=== PATIENT | female | born 1950 | race Caucasian/White ===

== ENCOUNTER 2017-04-05 09:20 | Emergency (ER) | payer MEDICARE ==
[2017-04-05] MEDS ORDERED: Aspirin Low Dose CHEW TAB* 81 MG PO ONE (10:01)
[2017-04-05 10:14] LABS: Hematocrit 43 % (35-47); Hemoglobin 14.5 g/dl (12.0-16.0); Mean Corpuscular HGB Conc 34 g/dl (31-36); Mean Corpuscular Hemoglobin 30 pg (27-31); Mean Corpuscular Volume 90 fL (80-97); Mean Platelet Volume 9 um3 (7.4-10.4); Red Blood Count 4.82 10^6/ul (4.0-5.4); Red Cell Distribution Width 14 % (10.5-15); White Blood Count 8.7 10^3/ul (3.5-10.8)
[2017-04-05] MEDS ORDERED: NS 0.9% 1000 ML* 1,000 ML IV SCH (10:15)
[2017-04-05 10:29] LABS: Troponin I 0.01 ng/mL (<0.04)
[2017-04-05 10:35] LABS: Albumin 4.5 g/dL (3.2-5.2); BUN/Creatinine Ratio 18.6 (8-20); C Reactive Protein 8.45 mg/L (< 5.00); Calcium 9.2 mg/dL (8.6-10.3); EGFR African American 69.1 (>60); EGFR Non-African American 53.7 (>60); Globulin 3.1 g/dL (2-4); Magnesium 2.3 mg/dL (1.9-2.7); Potassium 3.6 mmol/L (3.5-5.0); TSH (Thyroid Stimulating Horm) 2.68 mcIU/mL (0.34-5.60); Total Bilirubin 0.7 mg/dL (0.2-1.0); Total Protein 7.6 g/dL (6.4-8.9)
--- NOTE | 2017-04-05 10:42 | RAD ---
INDICATION: Left upper chest pain. COMPARISON: Comparison is made with a prior chest x-ray study from June 30, 2010. TECHNIQUE: A portable view of the chest was obtained. FINDINGS: Cardiac and mediastinal contours appear to be within normal limits. The lungs are clear. No pleural effusion or pneumothorax is seen. IMPRESSION: NO EVIDENCE FOR ACUTE DISEASE.
[2017-04-05 11:40] VITALS: BP 142/58
--- NOTE | 2017-04-05 14:47 | ED ---
George Donaldson Salem, scribed for Burt Palomino MD on 04/05/17 at 0951 . HPI Chest Pain - HPI Summary HPI Summary: Patient is a 67 y/o F who presents to the ED with sharp shoulder pain since 2 days ago. She states that she had trouble sleeping 2 nights ago, as well as nausea, SOB, and sharp left shoulder pain. She took 3 NTG that night and tried to return to sleep and woke up with mild nausea, but no pain yesterday morning. However, pain returned during the day yesterday and she woke up with left shoulder pain this morning. She states that pain was sharp, but then became dull and is not present during examination. Pt was diaphoretic yesterday and today. She denies neck pain, but reports general numbness and edema unchanged from baseline. She states shoulder pain is not changed with arm movement. She denies taking any medication today. PMHx significant for HTN, HLD, and 2 MIs. - History of Current Complaint Chief Complaint: EDChestPainROMI Time Seen by Provider: 04/05/17 09:40 Hx Obtained From: Patient Onset/Duration: Started Days Ago, Atraumatic, Resolved Timing: Intermittent Initial Severity: Moderate Current Severity: Moderate Pain Intensity: 5 Pain Scale Used: 0-10 Numeric Chest Pain Location: Diffuse - Left shoulder. Chest Pain Radiates: No Character: Dull/Aching, Sharp/Stabbing Aggravating Factor(s): Nothing Alleviating Factor(s): Nothing Associated Signs and Symptoms: Positive: Chest Pain, Numbness, Shortness of Breath, Nausea, Edema - Allergy/Home Medications Allergies/Adverse Reactions: Allergies Allergy/AdvReac Type Severity Reaction Status Date / Time Eggs or Egg-derived Products Allergy Unknown Verified 07/27/14 14:14 Reaction Details Penicillins Allergy Unknown Verified 02/05/15 15:10 Reaction Details Statins Allergy Unknown Verified 07/27/14 14:14 Reaction Details statin Allergy Unknown Uncoded 07/27/14 14:14 Reaction Details Home Medications: Home Medications Aspirin EC Low Dose* [Ecotrin EC Low Dose 81 MG*] 81 mg PO BID 04/05/17 [ History Confirmed 04/05/17] LoraTADine TAB(NF) [Claritin 10 MG TAB(NF)] 10 mg PO DAILY PRN 04/05/17 [ History Confirmed 04/05/17] Meclizine TAB* [Antivert 12.5 TAB*] 25 mg PO TID PRN 04/05/17 [History Confirmed 04/05/17] Multivitamins/Minerals TAB* [Theragran/minerals TAB*] 1 tab PO DAILY 04/05/17 [ History Confirmed 04/05/17] Ranitidine TAB (NF) [Zantac TAB (NF)] 150 mg PO BID 04/05/17 [History Confirmed 04/05/17] Telmisartan (NF) [Micardis (NF)] 80 mg PO DAILY 04/05/17 [History Confirmed ] Vitamin B Complex CAP* [B Complex CAP*] 1 cap PO DAILY 04/05/17 [History Confirmed 04/05/17] amLODIPine TAB* [Norvasc 5 mg TAB*] 5 mg PO DAILY 04/05/17 [History Confirmed ] PMH/Surg Hx/FS Hx/Imm Hx Endocrine/Hematology History: Denies: Hx Diabetes Cardiovascular History: Reports: Hx Angina, Hx Coronary Artery Disease, Hx Hypertension, Hx Myocardial Infarction Denies: Hx Hypercholesterolemia, Hx Pacemaker/ICD, Hx Valvular Heart Disease Respiratory History: Denies: Hx Asthma, Hx Chronic Obstructive Pulmonary Disease (COPD) Sensory History: Denies: Hx Hearing Aid Psychiatric History: Denies: Hx Panic Disorder - Surgical History Surgery Procedure, Year, and Place: HYSTERECTOMY Infectious Disease History: No Infectious Disease History: Denies: Traveled Outside the [place] in Last 30 Days - Family History Known Family History: Positive: Cardiac Disease, Diabetes - Social History Alcohol Use: None Hx Substance Use: No Substance Use Type: Reports: None Hx Tobacco Use: No Smoking Status (MU): Never Smoked Tobacco Review of Systems Positive: Skin Diaphoresis, Other - Trouble sleeping. ENT: Other - No neck pain. Positive: Chest Pain - Sharp left shoulder pain. Positive: Shortness Of Breath Positive: Nausea Positive: Edema Positive: Numbness - General. All Other Systems Reviewed And Are Negative: Yes Physical Exam Triage Information Reviewed: Yes Vital Signs On Initial Exam: Initial Vitals Temp Pulse Resp BP Pulse Ox 97.7 F 57 20 165/76 99 04/05/17 09:23 04/05/17 09:23 04/05/17 09:23 04/05/17 09:23 04/05/17 09:23 Vital Signs Reviewed: Yes Appearance: Positive: Well-Appearing, No Pain Distress Skin: Positive: Warm, Skin Color Reflects Adequate Perfusion, Dry Head/Face: Positive: Normal Head/Face Inspection Eyes: Positive: EOMI, MISTY Neck: Positive: Supple, Nontender Respiratory/Lung Sounds: Positive: Clear to Auscultation, Breath Sounds Present Cardiovascular: Positive: RRR Abdomen Description: Positive: Nontender, Soft Bowel Sounds: Positive: Present Musculoskeletal: Positive: Normal, Strength/ROM Intact, Other - Left shoulder: nontender and full ROM. Neurological: Positive: Normal, Sensory/Motor Intact, Alert, Oriented to Person Place, Time Psychiatric: Positive: Affect/Mood Appropriate Diagnostics - Vital Signs Vital Signs Temp Pulse Resp BP Pulse Ox 04/05/17 09:26 97.7 F 57 20 165/76 97 04/05/17 09:23 97.7 F 57 20 165/76 99 - Laboratory Lab Results: Lab Results 04/05/17 04/05/17 04/05/17 Range/Units 09:40 09:40 09:40 WBC 8.7 (3.5-10.8) 10^3/ul RBC 4.82 (4.0-5.4) 10^6/ul Hgb 14.5 (12.0-16.0) g/dl Hct 43 (35-47) % MCV 90 (80-97) fL MCH 30 (27-31) pg MCHC 34 (31-36) g/dl RDW 14 (10.5-15) % Plt Count 250 (150-450) 10^3/ul MPV 9 (7.4-10.4) um3 Neut % (Auto) 61.1 (38-83) % Lymph % (Auto) 29.1 (25-47) % Kent % (Auto) 7.2 (1-9) % Eos % (Auto) 2.0 (0-6) % Baso % (Auto) 0.6 (0-2) % Absolute Neuts (auto) 5.3 (1.5-7.7) 10^3/ul Absolute Lymphs (auto) 2.5 (1.0-4.8) 10^3/ul Absolute Monos (auto) 0.6 (0-0.8) 10^3/ul Absolute Eos (auto) 0.2 (0-0.6) 10^3/ul Absolute Basos (auto) 0.1 (0-0.2) 10^3/ul Absolute Nucleated RBC 0.01 10^3/ul Nucleated RBC % 0.1 INR (Anticoag Therapy) 0.95 (0.89-1.11) APTT 28.0 (26.0-36.3) seconds D-Dimer, Quantitative < 200 (Less Than 230) ng/mL Sodium 139 (133-145) mmol/L Potassium 3.6 (3.5-5.0) mmol/L Chloride 103 (101-111) mmol/L Carbon Dioxide 28 (22-32) mmol/L Anion Gap 8 (2-11) mmol/L BUN 19 (6-24) mg/dL Creatinine 1.02 H (0.51-0.95) mg/dL Est GFR ( Amer) 69.1 (>60) Est GFR (Non-Af Amer) 53.7 (>60) BUN/Creatinine Ratio 18.6 (8-20) Glucose 117 H (70-100) mg/dL Lactic Acid (0.5-2.0) mmol/L Calcium 9.2 (8.6-10.3) mg/dL Magnesium 2.3 (1.9-2.7) mg/dL Total Bilirubin 0.70 (0.2-1.0) mg/dL AST 18 (13-39) U/L ALT 20 (7-52) U/L Alkaline Phosphatase 53 (34-104) U/L Total Creatine Kinase 42 (10-223) U/L CK-MB (CK-2) 1.0 (0.6-6.3) ng/mL Troponin I 0.01 (<0.04) ng/mL C-Reactive Protein 8.45 H (< 5.00) mg/L B-Natriuretic Peptide ( - 100) pg/mL Total Protein 7.6 (6.4-8.9) g/dL Albumin 4.5 (3.2-5.2) g/dL Globulin 3.1 (2-4) g/dL Albumin/Globulin Ratio 1.5 (1-3) Lipase 14 (11.0-82.0) U/L TSH 2.68 (0.34-5.60) mcIU/mL 04/05/17 04/05/17 Range/Units 09:40 09:40 WBC (3.5-10.8) 10^3/ul RBC (4.0-5.4) 10^6/ul Hgb (12.0-16.0) g/dl Hct (35-47) % MCV (80-97) fL MCH (27-31) pg MCHC (31-36) g/dl RDW (10.5-15) % Plt Count (150-450) 10^3/ul MPV (7.4-10.4) um3 Neut % (Auto) (38-83) % Lymph % (Auto) (25-47) % Kent % (Auto) (1-9) % Eos % (Auto) (0-6) % Baso % (Auto) (0-2) % Absolute Neuts (auto) (1.5-7.7) 10^3/ul Absolute Lymphs (auto) (1.0-4.8) 10^3/ul Absolute Monos (auto) (0-0.8) 10^3/ul Absolute Eos (auto) (0-0.6) 10^3/ul Absolute Basos (auto) (0-0.2) 10^3/ul Absolute Nucleated RBC 10^3/ul Nucleated RBC % INR (Anticoag Therapy) (0.89-1.11) APTT (26.0-36.3) seconds D-Dimer, Quantitative (Less Than 230) ng/mL Sodium (133-145) mmol/L Potassium (3.5-5.0) mmol/L Chloride (101-111) mmol/L Carbon Dioxide (22-32) mmol/L Anion Gap (2-11) mmol/L BUN (6-24) mg/dL Creatinine (0.51-0.95) mg/dL Est GFR ( Amer) (>60) Est GFR (Non-Af Amer) (>60) BUN/Creatinine Ratio (8-20) Glucose (70-100) mg/dL Lactic Acid 1.3 (0.5-2.0) mmol/L Calcium (8.6-10.3) mg/dL Magnesium (1.9-2.7) mg/dL Total Bilirubin (0.2-1.0) mg/dL AST (13-39) U/L ALT (7-52) U/L Alkaline Phosphatase (34-104) U/L Total Creatine Kinase (10-223) U/L CK-MB (CK-2) (0.6-6.3) ng/mL Troponin I (<0.04) ng/mL C-Reactive Protein (< 5.00) mg/L B-Natriuretic Peptide 48 ( - 100) pg/mL Total Protein (6.4-8.9) g/dL Albumin (3.2-5.2) g/dL Globulin (2-4) g/dL Albumin/Globulin Ratio (1-3) Lipase (11.0-82.0) U/L TSH (0.34-5.60) mcIU/mL Result Diagrams: 04/05/17 09:40 04/05/17 09:40 Diagnostic Studies Comment: Trop: 0.01 Lab Statement: Any lab studies that have been ordered have been reviewed, and results considered in the medical decision making process. - Radiology CXR Radiology Interpretation Completed By: Radiologist - IMPRESSION: NO EVIDENCE FOR ACUTE DISEASE. - EKG 0935 EKG Interpretation: Sinus bradycardia @ [address] No ectopy. Re-Evaluation - Re-Evaluation First Eval Re-Evaluation Time: 11:24 Comment: Discussed recommendation for admission and consult with hospitalist. Chest Pain Course/Dx - Course Course Of Treatment: Recommended admission, but pt declined. She states that she feels better and that she would like to go home. However, she will follow up with her obiee report developer. DISCUSSED RESULTS WITH PATIENT/ AND PLANNED ON ADMITTING PATIENT. 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 - Diagnoses Provider Diagnoses: Chest pain - Provider Notifications Discussed Care Of Patient With: Becyk Jordan Time Discussed With Above Provider: 11:08 Instructed by Provider To: Other - Consult admission. Discharge - Discharge Plan Condition: Stable Disposition: HOME Patient Education Materials: Chest Pain (ED), Acute Nausea and Vomiting (ED) Referrals: Mulugeta Perez MD [Medical Doctor] - Zoe Dey MD [Primary Care Provider] - Additional Instructions: FOLLOW UP WITH YOUR PRIMARY CARE DOCTOR AND YOUR CORN DETASSELER MACHINE OPERATOR. RETURN TO THE EMERGENCY DEPARTMENT FOR ANY WORSENING OF YOUR CONDITION; CHEST PAIN, SHORTNESS OF BREATH, YOU FEEL ILL OR QUESTIONS OR CONCERNS. The documentation as recorded by the George funez Salem accurately reflects the service I personally performed and the decisions made by me, Burt Palomino MD.
== END 2017-04-05 11:40 | disposition home or self-care (01) ==
LOC: ED 09:20
DX: R07.9 Chest pain, unspecified (principal); M25.512 Pain in left shoulder; R06.02 Shortness of breath; R11.0 Nausea
CPT/HCPCS: 36415; 71010; 80053; 82550; 82553; 83605; 83690; 83735; 83880; 84443; 84484; 85025; 85379; 85610; 85730; 86140; 93005; 99283; A9270-GY

== ENCOUNTER 2017-09-25 08:34 | Observation (INO) | payer MEDICARE ==
[~2017-09-25 08:34] MED LIST: Atracurium* 10 MG/ML 10 ML VIAL ONE; Buffered Lidocaine 0.9% SYRIN* 5 ML/SYR SYRINGE INTRADERM ONE; DiMENhydriNATE IV* 50 MG/ML VIAL IV PUSH PRN; Famotidine IV* 10 MG/ML 2 ML (20 mg) IV ONE; KETAMINE HCL* 50 MG/ML 10 ML VIAL ONE; Midazolam* 1 MG/ML 10 ML VIAL (10 MG) ONE; Morphine INJ* 2 MG/ML 1 ML CARPUJECT IV PRN; PROCHLORPERAZINE INJ 5 MG/ML 2 ML VIAL IV PRN; fentaNYL* 50 MCG/ML 2 ML VIAL (100 MCG VIAL) ONE; oxyCODONE/Acetamin 5/325 MG* TAB PO PRN
[2017-09-25] MEDS ORDERED: Famotidine IV* 10 MG/ML 2 ML (20 mg) ONE (08:44)
[2017-09-25] MEDS ORDERED: Buffered Lidocaine 0.9% SYRIN* 5 ML/SYR SYRINGE ONE (08:44)
[2017-09-25] MEDS ORDERED: Thrombin 5,000 UNITS* 1 APPLIC KIT - topical use - TOPICAL ONE (09:47)
[2017-09-25] MEDS ORDERED: Lidocaine 1% MPF wEPI 200,000* 30 ML SDV ONE (09:47)
[2017-09-25] MEDS ORDERED: Bacitracin IV* 50,000 UNITS INJ ONE (09:48)
[2017-09-25] MEDS ORDERED: ceFAZolin 2 GM PREMIX (*) 2 GM/50 ML BAG IVPB ONE (10:14)
[2017-09-25] MEDS ORDERED: Lidocaine 2% PF * 5 ML VIAL ONE (11:48)
[2017-09-25] MEDS ORDERED: Dexamethasone IV* 4 MG/ML 1 ML (4 MG) ONE (11:48)
[2017-09-25] MEDS ORDERED: Ondansetron INJ* 2 MG/ML VIAL ONE (11:48)
[2017-09-25] MEDS ORDERED: Propofol* 10 MG/ML 20 ML BTL IV PUSH ONE (11:48)
[2017-09-25] MEDS ORDERED: Metoprolol Tartrate IV* 1 MG/ML 5 ML VIAL ONE (11:49)
[2017-09-25] MEDS ORDERED: EPHEDrine (Pressors)* 50 MG/ML VIAL ONE (11:50)
[2017-09-25] MEDS ORDERED: Naloxone* 0.4 MG/ML 10 ML VIAL ONE (11:59)
[2017-09-25] MEDS ORDERED: Ondansetron INJ* 2 MG/ML VIAL IV PRN (12:01)
[2017-09-25] MEDS ORDERED: Magnesium Hydroxide LIQ* 30 ML UDC PO PRN (12:01)
[2017-09-25] MEDS ORDERED: Acetaminophen TAB* 325 MG PO PRN (12:01)
[2017-09-25] MEDS ORDERED: fentaNYL* 50 MCG/ML 2 ML VIAL (100 MCG VIAL) ONE (12:22)
[2017-09-25] MEDS ORDERED: oxyCODONE/Acetamin 5/325 MG* TAB ONE (12:22)
[2017-09-25] MEDS: fentaNYL* 50 MCG/ML 2 ML VIAL (100 MCG VIAL) IV PRN ×2 (12:25→13:19)
--- NOTE | 2017-09-25 13:28 | RAD ---
INDICATION: Back surgery COMPARISON: None TECHNIQUE: Single crosstable lateral view of the lumbar spine is submitted FINDINGS: There are retractors and a curved hemostat at the L4-L5 level. Images were obtained for operative control purposes
[2017-09-25] MEDS ORDERED: Atenolol TAB* 50 MG PO SCH (18:00)
[2017-09-25] MEDS ORDERED: amLODIPine TAB* 5 MG PO SCH (18:00)
[2017-09-25] MEDS: HYDROcodone/ACETAMIN 5-325 MG* 1 TAB PO PRN ×2 (18:57→23:59)
--- NOTE | 2017-09-25 20:16 | CONS ---
CONSULTATION REPORT: DATE OF CONSULT: 09/25/17 PROVIDER: Pat Garcia NP PRIMARY CARE PROVIDER: Dr. Zoe Dey. ATTENDING PHYSICIAN: Dr. Curry. CONSULTING PHYSICIAN: Dr. Misael Lewis * (dictation is provided by Pat Garcia NP). REASON FOR CONSULT: Co-medical management of the patient's chronic medical conditions. HISTORY OF PRESENT ILLNESS: Ms. Mace is a 67-year-old female that presented for a right decompression lumbar laminectomy at L4-L5 with Dr. Curry today. She has a medical history significant for hypertension, coronary artery disease. She has a history of myocardial infarction, hyperlipidemia, and chronic ischemic heart disease. Postoperatively, the patient is doing well. She has no complaints other than mild lower back pain at this time. The patient states leading up to the surgery, she has been in a good state of health except for her chronic lower back pain that radiates down her right leg. She states that the pain becomes worse with prolonged standing and walking or activity. The pain radiates down the right posterior thigh to the foot. The patient denies fevers, chills, or shortness of breath. Denies edema. She denies any nausea, vomiting, or diarrhea. Denies any abdominal pain. PAST MEDICAL HISTORY: 1. Hypertension. 2. Coronary artery disease. 3. History of myocardial infarction. 4. Hyperlipidemia. 5. Chronic ischemic heart disease. PAST SURGICAL HISTORY: Colonoscopy. MEDICATIONS: 1. Amlodipine 5 mg p.o. daily. 2. Zantac 150 mg p.o. daily. 3. Niacin 500 mg p.o. daily. 4. Multivitamin 1 p.o. daily. 5. Meclizine 25 mg p.o. t.i.d. p.r.n. dizziness. 6. Coenzyme Q10 100 mg p.o. daily. 7. Atenolol 50 mg p.o. q.p.m. 8. Aspirin 81 mg p.o. q. day. 9. Ascorbic acid 1000 mg p.o. daily. ALLERGIES: She has an allergy to CHLORHEXIDINE, EGGS or EGG-DERIVATIVE PRODUCTS , STATINS, TELMISARTAN, and PENICILLINS. She reports PENICILLIN allergy with a local reaction of redness at the injection site. FAMILY HISTORY: Father has a history of coronary artery disease and an [place]. SOCIAL HISTORY: She denies smoking or drug use. She is and lives with her . She does report that she has a drink of liquor or wine approximately 3 times a week. Surrogate decision maker in the case if she is unable to make her own medical decisions is her , Morgan Mace, and his phone number is . REVIEW OF SYSTEMS: General: She denies fever, chills, or unintended weight loss. Cardiac: She has got no chest pain or edema. Respiratory: She denies shortness of breath, cough, or congestion. GI: She denies nausea, vomiting, or diarrhea. She denies any abdominal pain. : No gross hematuria or dysuria. Neuro: No focal weakness or sensory loss. Eyes: No visual complaints. ENT: No dysphagia. Musculoskeletal: No myalgias. Skin: No rashes or lesions. Psych: She denies any depression or anxiety. PHYSICAL EXAM: Vital Signs: Blood pressure 158/62, heart rate is 52, respirations are 12, O2 sat is 100% on 2 L nasal cannula, temperature is 96.8. General: Ms. Mace is a 67-year-old female. She is lying in the bed. She is in no acute distress. She denies any complaints other than mild back pain at this time. Neuro: She is alert and oriented x3. She moves all of her extremities. There is no facial asymmetry or focal weakness noted. Extraocular eye movements are intact. Heart: S1, S2 normal. She is bradycardic. There are no murmurs, rubs, or gallops. Lungs are clear to auscultation bilaterally. There is no accessory muscle use. Abdomen is soft and nontender. Bowel sounds are positive x4. Extremities: There is no cyanosis or edema. Skin is intact. DIAGNOSTIC STUDIES/LAB DATA: Preoperatively, this lab work is from 09/20/17: WBC 8.5, RBC 4.42, hemoglobin is 13.3, hematocrit 40, platelet count was 238. INR is 0.95, that was from 04/05/17. From 09/20/17: Sodium 140, potassium was 3.6, chloride was 102, carbon dioxide was 31, anion gap was 7, BUN was 12, creatinine 0.87, glucose was 97, calcium was 9.3. TSH was 2.86. EKG shows sinus elva at 51, first-degree AV block. Chest x-ray from 09/20/17, shows Radiology impression was no active cardiopulmonary disease. IMPRESSION AND PLAN: Ms. Mace is a 67-year-old female with significant past medical history for coronary artery disease, hypertension, hyperlipidemia, who presented to the hospital today for a planned L4-L5 right decompression lumbar laminectomy. In the immediate postoperative period, she has no complaints. We were asked to consult regarding management of her co-medical chronic medical conditions. Our recommendations are as follows: 1. Status post right L4-L5 laminectomy. management per Neurosurgery. 2. Hypertension. We will hold her amlodipine and restart that tomorrow morning. 3. Hyperlipidemia. We will continue her niacin. 4. History of myocardial infarction. We will continue her on her atenolol 50 mg. 5. FEN. I would recommend a heart-healthy diet. 6. Code status. She is a full code. 7. DVT prophylaxis. As per Neurosurgery. 8. Disposition. As per Neurosurgery. TIME SPENT: Approximately 45 minutes was spent on this consultation with this patient, more than half the time was spent at the bedside reviewing the events leading to the hospitalization and performing physical exam. The case was reviewed with my attending, Dr. Misael Lewis, and he is in agreement with my plan of care. PAT GARCIA, KARINA [id number]/[facility] #: [id number] SUKI
[2017-09-26] MEDS: HYDROcodone/ACETAMIN 5-325 MG* 1 TAB PO PRN ×2 (03:58→08:02)
[2017-09-26 07:42] VITALS: BP 135/56
--- NOTE | 2017-09-26 07:56 | PN ---
Progress Note - Progress Note Date of Service: 09/26/17 SOAP: Subjective: []POD # 1 C/O incisional pain Has ambulated Voiding well Objective: []Neuro intact Dressing dry Assessment: []Satis post op course Plan: []D/C today D/C Instructions given
[2017-09-26] MEDS ORDERED: Aspirin EC Low Dose* 81 MG TAB.EC PO SCH (09:00)
[2017-09-26] MEDS ORDERED: Coenzyme Q10 (NF) ** ENTER STREGNTH IN LABEL DIRECTIONS PO SCH (09:00)
[2017-09-26] MEDS ORDERED: amLODIPine TAB* 5 MG PO SCH (18:00)
--- NOTE | 2017-09-27 21:12 | OP ---
OPERATIVE REPORT: DATE OF OPERATION: 09/25/17 DATE OF : 46 PRIMARY SURGEON: Eduar Curry MD INSPECTOR FLOOR: JEANNIE Santana ANESTHESIA: General. PRE-OP DIAGNOSES: Lumbar spinal stenosis at L4-L5, herniated nucleus pulposus at L4-5 on the right. POST-OP DIAGNOSES: Lumbar spinal stenosis at L4-L5, herniated nucleus pulposus at L4-5 on the right. OPERATIVE PROCEDURE: Decompressive lumbar laminectomy at L4-5 with excision of herniated nucleus pul posus L4-5 on the right with microdissection. DESCRIPTION OF PROCEDURE: After satisfactory general anesthesia was obtained, the patient was placed on the operating room table in a prone position with the chest supported on the Humble frame and the back slightly flexed. The lumbar region was then clipped, prepped and draped in a sterile manner fo r lumbar laminectomy and a skin incision outlined from L4 to L5. This incision was infiltrated with 1% Xylocaine with epinephrine, after which it was turned down sharply to the level of the lumbar fasc ia. The fascia was divided on spinous processes of L4 and L5 and the paraspinal musculature stripped away from these posterior elements utilizing the periosteal elevator and monopolar cautery. An intr aoperative x-ray was obtained verifying proper interspace localization, after which a decompression w as carried out by removing the spinous process of L4 and the superior aspect of the spinous process o f L5 with a Leksell rongeur. A Midas Efrain drill was then used to thin out the reinforcement at the ba se of the spinous process of L4 and the inferior aspect of the lamina as well as the medial aspect of the thickened facet complex. A decompression was then carried out and taken superiorly into the att achment of the ligamentum flavum was taken down. Ligamentum flavum was then removed with the Kerriso n. A generous decompression was initially carried out on both sides utilizing the Kerrison's. This was carried down to both L5 nerve roots and noted to be free in their course. Attention was then dir ected to the L4-L5 disk on the right side where a preoperative imaging has suggested a disk herniatio n. Projecting beneath the posterior longitudinal ligament was heaped up somewhat from disk herniatio n. An opening was made in the posterior longitudinal ligament and the disk space decompressed utiliz ing curettes and pituitary rongeurs. It was felt that a satisfactory decompression had been achieved. After assuring adequate hemostasis, the wound was thoroughly irrigated, after which a piece of Gelf oam was placed over the laminectomy defect. The fascia was then reapproximated with 0 Vicryl suture . The subcutaneous tissue was closed with 3-0 Vicryl suture and the skin closed with skin clips. Th e estimated blood loss was less than 50 cc and the final sponge, padding, and needle counts were erica ect. The patient was taken to the recovery room, extubated, and in stable condition. [id number]/[facility] #: [id number]
--- NOTE | 2017-09-28 00:34 | DS ---
DISCHARGE SUMMARY: DATE OF ADMISSION: 09/25/17 DATE OF DISCHARGE: 09/26/17 ATTENDING PHYSICIAN: Dr. Eduar Curry* (dictated by JEANNIE Benitez). DISCHARGE DIAGNOSES: 1. Lumbar stenosis, L4-5. 2. Herniated nucleus pulposus, L4-5 to the right. 3. Hypertension. 4. Coronary artery disease. 5. History of myocardial infarction. PROCEDURES: Decompressive lumbar laminectomy, L4-5 and lumbar diskectomy at L4- 5 on the right. HOSPITAL COURSE: This 67-year-old female was seen in the office with right- sided lumbar radiculopathy consistent with MRI findings of stenosis and right- sided herniated disk at L4-5. She failed to improve after several runs of conservative treatment and medication and elective surgical treatment was discussed with the patient. On the day of admission, she was taken to surgery where under general anesthesia a decompressive lumbar laminectomy at L4-5 and a lumbar diskectomy at L4- 5 on the right operation was carried out. Postoperatively, Hospitalist was consulted for medical co-management of cardiac conditions. Postoperatively, she was feeling well. She was ambulating independently. She was eating, drinking, and voiding without difficulty. Pain was well controlled with oral pain medication. On the first postoperative day, she was discharged to home to the care of her . DISCHARGE INSTRUCTIONS: Activity level and wound care were discussed with the patient and information on this was provided. DISCHARGE MEDICATIONS: None. FOLLOWUP: The patient will be seen in the office on 10/05/17 for followup and staple removal. JEANNIE BENITEZ [id number]/[facility] #: [id number] MTDD
== END 2017-09-26 10:00 | disposition home or self-care (01) ==
LOC: OR 08:34 → SSU 14:00
PROVIDERS: ADMIT Neurological Surgery; ATTEND Internal Medicine
DX: M48.061 Spinal stenosis, lumbar region without neurogenic claudication (principal); M51.26 Other intervertebral disc displacement, lumbar region; I10 Essential (primary) hypertension; I25.10 Atherosclerotic heart disease of native coronary artery without angina pectoris; I25.2 Old myocardial infarction; Z79.82 Long term (current) use of aspirin; Z79.899 Other long term (current) drug therapy; Z91.012 Allergy to eggs; Z88.0 Allergy status to penicillin; Z91.09 Other allergy status, other than to drugs and biological substances
CPT/HCPCS: 72100; 96374; 96375; A9270-GY; G0378; J0690; J1100; J2001; J2250; J2310; J2405; J2704; J3010; J3490

== ENCOUNTER 2017-10-03 00:14 | Emergency (ER) | payer MEDICARE ==
[2017-10-03] MEDS ORDERED: Dexamethasone IV* 4 MG/ML 1 ML (4 MG) IV SLOW PU ONE (01:46)
[2017-10-03] MEDS ORDERED: diPHENhydraMINE IV* 50 MG/ML 1 ml VIAL (BENADRYL) IV ONE (01:46)
[2017-10-03] MEDS ORDERED: Acetaminophen TAB* 325 MG PO ONE (01:47)
[2017-10-03 01:51] LABS: ABS Basophils 0.1 10^3/ul (0-0.2); ABS Eosinophils 0.4 10^3/ul (0-0.6); ABS Monocytes 0.8 10^3/ul (0-0.8); ABS Neutrophils 9.5 10^3/ul (1.5-7.7); ABS Nucleated RBC 0.01 10^3/ul; Eosinophil % 2.5 % (0-6); Hematocrit 40 % (35-47); Hemoglobin 13.3 g/dl (12.0-16.0); Lymphocyte % 21.6 % (25-47); Mean Corpuscular HGB Conc 34 g/dl (31-36); Mean Corpuscular Hemoglobin 30 pg (27-31); Mean Corpuscular Volume 89 fL (80-97); Mean Platelet Volume 9 um3 (7.4-10.4); Nucleated Red Blood Cells % 0.1; Platelet Count 294 10^3/ul (150-450); Red Blood Count 4.44 10^6/ul (4.0-5.4); Red Cell Distribution Width 14 % (10.5-15); White Blood Count 13.8 10^3/ul (3.5-10.8)
[2017-10-03 02:03] LABS: EGFR Non-African American 60.5 (>60)
--- NOTE | 2017-10-03 05:26 | ED ---
Wilfredo Donaldson Tecjoon, scribed for Will Beach MD on 10/03/17 at 0120 . ED Suture/Wound Check - HPI Summary HPI Summary: This patient is a 67 year old female presenting to [facility] [place] accompanied by with a chief complaint of swelling at incision site since tonight approximately 2300. Pt is s/p laminectomy 09/25/17. Pt came to ED on advice of MD, as she claims she has developed swelling over the surgical site. The pain is rated 3/ 10 in severity. Symptoms aggravated by nothing. Symptoms alleviated by nothing Patient additionally reports numbness and tingling in upper extremities, general weakness, weakness in left leg specifically. Patient denies fever, back pain more than usual, urinary problems. Patient denies taking antibiotics. - History Of Current Complaint Chief Complaint: EDGeneral Stated Complaint: SWELLING OF THE BACK. Time Seen by Provider: 10/03/17 01:16 Hx Obtained From: Patient Onset/Duration: Gradual Onset, Still Present Surgical Site: Lower back Severity: Mild Pain Intensity: 3 Pain Scale Used: 0-10 Numeric Procedure Type: laminectomy Surgery Date: 09/23/17 - Allergies/Home Medications Allergies/Adverse Reactions: Allergies Allergy/AdvReac Type Severity Reaction Status Date / Time Iodinated Diagnostic Agents Allergy Mild Rash Verified 10/03/17 01:53 Chlorhexidine Allergy See Comment Verified 10/03/17 00:32 Eggs or Egg-derived Products Allergy Hives Verified 10/03/17 00:32 Penicillins Allergy Unknown Verified 10/03/17 00:32 Reaction Details Statins Allergy Unknown Verified 10/03/17 00:32 Reaction Details Telmisartan Allergy Hives Verified 10/03/17 00:32 statin Allergy Unknown Uncoded 10/03/17 00:32 Reaction Details PMH/Surg Hx/FS Hx/Imm Hx Previously Healthy: No Endocrine/Hematology History: Reports: Hx Diabetes - PREDIABETIC-PATIENT WOULD PREFER TO AVOID IV GLUCOSE IF POSSIBLE Cardiovascular History: Reports: Hx Angina, Hx Coronary Artery Disease, Hx Hypertension - ON MEDICATION FOR, Hx Myocardial Infarction Denies: Hx Hypercholesterolemia, Hx Pacemaker/ICD, Hx Valvular Heart Disease Respiratory History: Denies: Hx Asthma, Hx Chronic Obstructive Pulmonary Disease (COPD) History: Denies: Hx Renal Disease Musculoskeletal History: Reports: Hx Arthritis Sensory History: Reports: Hx Contacts or Glasses - GLASSES Denies: Hx Hearing Aid Opthamlomology History: Reports: Hx Contacts or Glasses - GLASSES Psychiatric History: Denies: Hx Panic Disorder - Cancer History Cancer Type, Location and Year: skin CA - Surgical History Surgery Procedure, Year, and Place: ANGIOGRAM. ORAL SURGERY. right breast biopsy-07/2017-dr. mitchell Hx Anesthesia Reactions: No Infectious Disease History: No Infectious Disease History: Denies: Traveled Outside the [place] in Last 30 Days - Family History Known Family History: Positive: Cardiac Disease, Diabetes - Social History Alcohol Use: Occasionally Hx Substance Use: No Substance Use Type: Reports: None Hx Tobacco Use: No Smoking Status (MU): Never Smoked Tobacco Review of Systems Negative: Fever Genitourinary: Other - any urinary problems Musculoskeletal: Negative - back pain more than normal after surgery Positive: Paresthesia, Numbness All Other Systems Reviewed And Are Negative: Yes Physical Exam - Summary Physical Exam Summary: VITAL SIGNS: Reviewed. GENERAL: Patient is a well-developed and nourished female who is lying comfortable in the stretcher. Patient is not in any acute respiratory distress. HEAD AND FACE: No signs of trauma. No ecchymosis, hematomas or skull depressions. No sinus tenderness. EYES: PERRLA, EOMI x 2, No injected conjunctiva, no nystagmus. EARS: Hearing grossly intact. Ear canals and tympanic membranes are within normal limits. MOUTH: Oropharynx within normal limits. NECK: Supple, trachea is midline, no adenopathy, no JVD, no carotid bruit, no c- spine tenderness, neck with full ROM. CHEST: Symmetric, no tenderness at palpation LUNGS: Clear to auscultation bilaterally. No wheezing or crackles. CVS: Regular rate and rhythm, S1 and S2 present, no murmurs or gallops appreciated. ABDOMEN: Soft, non-tender. No signs of distention. No rebound no guarding, and no masses palpated. Bowel sounds are normal. BACK: Midline incision over Lumbar spine. [place] in place. Mild swelling and tenderness. No discharge. EXTREMITIES: FROM in all major joints, no edema, no cyanosis or clubbing. NEURO: Alert and oriented x 3. Speech is normal and follows commands. Mild weakness over left lower extremity 4-5/5. Bilaterally straight leg test negative. Patient states leg became weak 2nd day after surgery. SKIN: Dry and warm Triage Information Reviewed: Yes Vital Signs On Initial Exam: Initial Vitals Temp Pulse Resp BP Pulse Ox 97.8 F 55 16 158/78 97 10/03/17 00:20 10/03/17 00:20 10/03/17 00:20 10/03/17 00:20 10/03/17 00:20 Vital Signs Reviewed: Yes - [place] Coma Scale Coma Scale Total: 15 Diagnostics - Vital Signs Vital Signs Temp Pulse Resp BP Pulse Ox 10/03/17 01:01 52 97 10/03/17 00:49 49 97 10/03/17 00:47 166/68 10/03/17 00:20 97.8 F 55 16 158/78 97 - Laboratory Lab Results: Lab Results 10/03/17 10/03/17 10/03/17 Range/Units 01:38 01:38 04:07 WBC 13.8 H (3.5-10.8) 10^3/ul RBC 4.44 (4.0-5.4) 10^6/ul Hgb 13.3 (12.0-16.0) g/dl Hct 40 (35-47) % MCV 89 (80-97) fL MCH 30 (27-31) pg MCHC 34 (31-36) g/dl RDW 14 (10.5-15) % Plt Count 294 (150-450) 10^3/ul MPV 9 (7.4-10.4) um3 Neut % (Auto) 69.2 (38-83) % Lymph % (Auto) 21.6 L (25-47) % Lawrence % (Auto) 6.0 (1-9) % Eos % (Auto) 2.5 (0-6) % Baso % (Auto) 0.7 (0-2) % Absolute Neuts (auto) 9.5 H (1.5-7.7) 10^3/ul Absolute Lymphs (auto) 3.0 (1.0-4.8) 10^3/ul Absolute Monos (auto) 0.8 (0-0.8) 10^3/ul Absolute Eos (auto) 0.4 (0-0.6) 10^3/ul Absolute Basos (auto) 0.1 (0-0.2) 10^3/ul Absolute Nucleated RBC 0.01 10^3/ul Nucleated RBC % 0.1 ESR (0-40) mm/Hr Sodium 135 (133-145) mmol/L Potassium 3.4 L (3.5-5.0) mmol/L Chloride 103 (101-111) mmol/L Carbon Dioxide 24 (22-32) mmol/L Anion Gap 8 (2-11) mmol/L BUN 15 (6-24) mg/dL Creatinine 0.92 (0.51-0.95) mg/dL Est GFR ( Amer) 77.8 (>60) Est GFR (Non-Af Amer) 60.5 (>60) BUN/Creatinine Ratio 16.3 (8-20) Glucose 118 H (70-100) mg/dL Calcium 8.9 (8.6-10.3) mg/dL Total Bilirubin 0.50 (0.2-1.0) mg/dL AST 15 (13-39) U/L ALT 13 (7-52) U/L Alkaline Phosphatase 44 (34-104) U/L C-Reactive Protein 9.97 H (< 5.00) mg/L Total Protein 7.0 (6.4-8.9) g/dL Albumin 3.9 (3.2-5.2) g/dL Globulin 3.1 (2-4) g/dL Albumin/Globulin Ratio 1.3 (1-3) 10/03/17 Range/Units 04:07 WBC (3.5-10.8) 10^3/ul RBC (4.0-5.4) 10^6/ul Hgb (12.0-16.0) g/dl Hct (35-47) % MCV (80-97) fL MCH (27-31) pg MCHC (31-36) g/dl RDW (10.5-15) % Plt Count (150-450) 10^3/ul MPV (7.4-10.4) um3 Neut % (Auto) (38-83) % Lymph % (Auto) (25-47) % Lawrence % (Auto) (1-9) % Eos % (Auto) (0-6) % Baso % (Auto) (0-2) % Absolute Neuts (auto) (1.5-7.7) 10^3/ul Absolute Lymphs (auto) (1.0-4.8) 10^3/ul Absolute Monos (auto) (0-0.8) 10^3/ul Absolute Eos (auto) (0-0.6) 10^3/ul Absolute Basos (auto) (0-0.2) 10^3/ul Absolute Nucleated RBC 10^3/ul Nucleated RBC % ESR 22 (0-40) mm/Hr Sodium (133-145) mmol/L Potassium (3.5-5.0) mmol/L Chloride (101-111) mmol/L Carbon Dioxide (22-32) mmol/L Anion Gap (2-11) mmol/L BUN (6-24) mg/dL Creatinine (0.51-0.95) mg/dL Est GFR ( Amer) (>60) Est GFR (Non-Af Amer) (>60) BUN/Creatinine Ratio (8-20) Glucose (70-100) mg/dL Calcium (8.6-10.3) mg/dL Total Bilirubin (0.2-1.0) mg/dL AST (13-39) U/L ALT (7-52) U/L Alkaline Phosphatase (34-104) U/L C-Reactive Protein (< 5.00) mg/L Total Protein (6.4-8.9) g/dL Albumin (3.2-5.2) g/dL Globulin (2-4) g/dL Albumin/Globulin Ratio (1-3) Result Diagrams: 10/03/17 01:38 10/03/17 01:38 Lab Statement: Any lab studies that have been ordered have been reviewed, and results considered in the medical decision making process. - CT CT Lumbar Spine CT Interpretation: Positive (See Comments) - Patient is s/p L4-5 laminectomy. There is soft tissue fullness/edema along the laminectomy tract but this is common postoperatively. This soft tissue fullness and edema extends posteriorly to the subcutaneous tissues. This all may represent postoperative change but I cannot exclude the possibility of infection in this area. ED physician has reviewed this radiology report CT Interpretation Completed By: Radiologist Course/Dx - Course Course Of Treatment: This patient is a 67 year old female presenting to [facility] accompanied by with a chief complaint of swelling at incision site since tonight approximately 2300. Pt is s/p laminectomy 09/25/17. CT Lumbar reveals, per radiologist, Patient is s/p L4-5 laminectomy. There is soft tissue fullness/edema along the laminectomy tract but this is common postoperatively. This soft tissue fullness and edema extends posteriorly to the subcutaneous tissues. This all may represent postoperative change but I cannot exclude the possibility of infection in this area. ED physician has reviewed this radiology report. Bloodwork Obtained. In the ED course the patient was given Benadryl, Decadron, Tylenol. We discussed patient care with Dr. Wolfe (Neurosurgeon) at 0403 and they requested CRP and Sed rate. Patient will be discharged with Post-operative change. Follow up with Dr. Berg (neurosurgeon) at 12 noon today. - Clinical Impression Provider Diagnoses: post operative changes - Physician Notifications Discussed Care Of Patient With: Nick Berg - Neurosurgeon Time Discussed With Above Provider: 04:04 - requested CRP and Sed rate. Discharge - Discharge Plan Condition: Stable Disposition: HOME Referrals: Zoe Dey MD [Primary Care Provider] - 3 Days Nick Berg MD [Medical Doctor] - (Follow up at 12 noon today.) Additional Instructions: Patient will be discharged with Post-operative change. Follow up with Dr. Berg (neurosurgeon) at 12 noon today. The patient is agreeable with this plan. RETURN TO EMERGENCY DEPARTMENT FOR ANY NEW OR WORSENING SYMPTOMS The documentation as recorded by the Wilfredo funez Tecjoon accurately reflects the service I personally performed and the decisions made by Yong garvin Abdul, MD.
[2017-10-03 06:03] VITALS: BP 00/00
--- NOTE | 2017-10-03 08:17 | RAD ---
INDICATION: Concern for abscess in a woman status post laminectomy September 25, 2017. COMPARISON: MRI lumbar spine dated July 12, 2017 TECHNIQUE: Contiguous axial sections were obtained beginning lower thoracic vertebra and continuing through the sacrum. Images were reconstructed in the sagittal and coronal planes. FINDINGS: The patient is status post L4 laminectomy. The vertebral bodies and facet joints are otherwise appropriately aligned. Overlying the surgical site extending over the spinous processes of L3 and L5, there is a fluid density collection measuring approximately 1.6 x 4.6 cm in the axial plane and 4.8 cm in greatest cephalocaudal dimension. Hounsfield units measure this area are consistent with fluid. The surrounding paraspinal musculature is otherwise intact. Incidentally noted is coarse atherosclerotic calcification of the abdominal aorta extending into the bilateral common iliac arteries. Left-sided renal cysts are noted. IMPRESSION: There is a fluid density collection immediately posterior to the site of the laminectomy that could represent an abscess in the correct clinical setting. As clinically warranted, confirmation of fluid could be made with ultrasound while a more detailed evaluation of the soft tissue never structures can be made with MRI of the spine.
== END 2017-10-03 05:40 | disposition home or self-care (01) ==
LOC: ED 00:14
DX: M96.1 Postlaminectomy syndrome, not elsewhere classified (principal); Z86.79 Personal history of other diseases of the circulatory system
CPT/HCPCS: 36415; 72131; 80053; 85025; 85652; 86140; 96374; 99283; A9270-GY

== ENCOUNTER 2017-11-26 08:01 | Emergency (ER) | payer MEDICARE ==
[2017-11-26] MEDS ORDERED: Acetaminophen TAB* 325 MG PO ONE (09:29)
--- NOTE | 2017-11-26 09:34 | ED ---
Lower Extremity - HPI Summary HPI Summary: 67 female presents to ED with complaints of left little toe pain that began this morning around 3am this morning after trying to walk to the bathroom without the lights on and stubbing it on a chair. No other injuries or complaints. States she applied tape and plastic splint to help with pain. Admits to some swelling and bruising. No other complaints. PMHx includes HTN and ACS with previous SC. Took tylenol around 3am with little relief. Is able to bear weight and walk however it causes patient pain. - History of Current Complaint Chief Complaint: EDExtremityLower Stated Complaint: LT FOOT INJURY Time Seen by Provider: 11/26/17 08:47 Hx Obtained From: Patient Mechanism Of Injury: Direct Blow - stubbed into chair Pain Intensity: 9 Pain Scale Used: 0-10 Numeric Timing: Constant Location: Is Discrete @ - left little toe Character Of Pain: Sharp, Aching Associated Signs And Symptoms: Positive: Swelling, Bruising Aggravating Factor(s): Ambulation, Movement, Weight Bearing Alleviating Factor(s): Rest Able to Bear Weight: Yes - Allergies/Home Medications Allergies/Adverse Reactions: Allergies Allergy/AdvReac Type Severity Reaction Status Date / Time chlorhexidine Allergy Rash Verified 11/26/17 09:05 egg Allergy Hives Verified 11/26/17 09:05 Iodine and Iodide Containing Allergy Rash Verified 11/26/17 09:05 Produc Penicillins Allergy Hives Verified 11/26/17 09:05 telmisartan Allergy Hives Verified 11/26/17 09:05 statin Allergy Rash Uncoded 11/26/17 09:05 PMH/Surg Hx/FS Hx/Imm Hx Endocrine/Hematology History: Reports: Hx Diabetes - PREDIABETIC-PATIENT WOULD PREFER TO AVOID IV GLUCOSE IF POSSIBLE Cardiovascular History: Reports: Hx Angina, Hx Coronary Artery Disease, Hx Hypertension - ON MEDICATION FOR, Hx Myocardial Infarction Denies: Hx Hypercholesterolemia, Hx Pacemaker/ICD, Hx Valvular Heart Disease Respiratory History: Denies: Hx Asthma, Hx Chronic Obstructive Pulmonary Disease (COPD) History: Denies: Hx Renal Disease Musculoskeletal History: Reports: Hx Arthritis Sensory History: Reports: Hx Contacts or Glasses - GLASSES Denies: Hx Hearing Aid Opthamlomology History: Reports: Hx Contacts or Glasses - GLASSES Psychiatric History: Denies: Hx Panic Disorder - Cancer History Cancer Type, Location and Year: skin CA - Surgical History Surgery Procedure, Year, and Place: ANGIOGRAM. ORAL SURGERY. right UNDERARM CYST REMOVED-07/2017-dr. mitchell. [facility] DISCECTOMY/LAMINECTOMY Hx Anesthesia Reactions: No - Immunization History Immunizations Up to Date: Yes Infectious Disease History: No Infectious Disease History: Denies: Traveled Outside the [place] in Last 30 Days - Family History Known Family History: Positive: Cardiac Disease, Diabetes - Social History Alcohol Use: Occasionally Hx Substance Use: No Substance Use Type: Reports: None Hx Tobacco Use: No Smoking Status (MU): Never Smoked Tobacco Review of Systems Constitutional: Negative Cardiovascular: Negative Respiratory: Negative Positive: Arthralgia, Myalgia, Decreased ROM - left little toe , Edema Positive: Bruising - left little toe Neurological: Negative All Other Systems Reviewed And Are Negative: Yes Physical Exam Triage Information Reviewed: Yes Vital Signs On Initial Exam: Initial Vitals Temp Pulse Resp BP Pulse Ox 96.7 F 60 16 120/76 100 11/26/17 08:02 11/26/17 08:02 11/26/17 08:02 11/26/17 08:02 11/26/17 08:02 Vital Signs Reviewed: Yes Appearance: Positive: Well-Appearing, Well-Nourished, Pain Distress - mild to moderate with walking and palpating toe Skin: Positive: Warm, Skin Color Reflects Adequate Perfusion, Dry. Negative: Cold, Numb, Cyanosis @, Erythema @ Head/Face: Positive: Normal Head/Face Inspection Neck: Positive: Supple, Nontender Respiratory/Lung Sounds: Positive: Clear to Auscultation, Breath Sounds Present. Negative: Rales, Rhonchi, Wheezes Cardiovascular: Positive: Normal, RRR, Pulses are Symmetrical in both Upper and Lower Extremities - 2+ pedal b/l. Negative: Murmur, Rub Musculoskeletal: Positive: Limited @ - left 5th toe due to pain and injury. rest of MSK exam normal, Pain @ - left 5th toe with bruising at base, Edema Left - minimal at 5th toe Neurological: Positive: Normal, Sensory/Motor Intact, Alert, Oriented to Person Place, Time, NV Bundle Intact Distally, Normal Gait - favoring right side due to injury/pain of 5th toe Diagnostics - Vital Signs Vital Signs Temp Pulse Resp BP Pulse Ox 11/26/17 08:02 96.7 F 60 16 120/76 100 - Laboratory Lab Statement: Any lab studies that have been ordered have been reviewed, and results considered in the medical decision making process. - Radiology left foot Xray Interpretation: Positive (See Comments) - MINIMALLY IMPACTED TRANSVERSE FRACTURE OF THE FIFTH PROXIMAL PHALANX. Radiology Interpretation Completed By: Radiologist Re-Evaluation - Re-Evaluation First Eval Re-Evaluation Time: 10:04 Change: Unchanged - updated on xray results. understands, agrees and ready to be d/c Lower Extremity Course/Dx - Course Course Of Treatment: given tylenol for pain as that was requested. xray obtained and shows minimally impacted 5th toe fracture without complication or displacement. normal vitals and no other complaints/injuries. no other concerns at this time. toe syed taped and post op shoe splint applied. refrain from weight bearing as much as possible. RICE and analgesia. Aware of worsening signs and symptoms to watch out for. Follow up orthopedics this week. - Diagnoses Differential Diagnosis/HQI/PQRI: Positive: Contusion, Fracture (Closed), Sprain , Strain Provider Diagnoses: Toe fracture, left Discharge - Discharge Plan Condition: Stable Disposition: HOME Patient Education Materials: Toe Fracture (ED) Referrals: Zoe Dey MD [Primary Care Provider] - Additional Instructions: Keep splint applied and wear shoe brace. Continue tylenol/ibuprofne for pain and inflammation. Rest, ice and elevate to help with swelling. Any new or worsening symptoms please seek medical attention. Avoid bearing weight as much as possible. Follow up with orthopedics, call to make an appointment to be seen this week.
--- NOTE | 2017-11-26 09:41 | RAD ---
INDICATION: Left foot injury. TECHNIQUE: 3 views of the left foot were obtained. FINDINGS: There is soft tissue swelling over the forefoot which is most prominent along the dorsal aspect. There is a minimally impacted otherwise nondisplaced fracture of the mid diaphysis of the fifth proximal phalanx. No other fractures are seen. IMPRESSION: MINIMALLY IMPACTED TRANSVERSE FRACTURE OF THE FIFTH PROXIMAL PHALANX.
[2017-11-26 10:54] VITALS: BP 157/66
== END 2017-11-26 10:53 | disposition home or self-care (01) ==
LOC: ED 08:01
DX: S92.512A Displaced fracture of proximal phalanx of left lesser toe(s), initial encounter for closed fracture (principal); W22.03XA Walked into furniture, initial encounter; Y92.009 Unspecified place in unspecified non-institutional (private) residence as the place of occurrence of the external cause; I10 Essential (primary) hypertension; Z88.0 Allergy status to penicillin; Z88.8 Allergy status to other drugs, medicaments and biological substances; I25.119 Atherosclerotic heart disease of native coronary artery with unspecified angina pectoris
CPT/HCPCS: 99281

== ENCOUNTER 2019-03-06 08:21 | Inpatient (IN) | payer MEDICARE ==
[2019-03-06] MEDS ORDERED: Aspirin 81 mg CHEW TAB* 81 MG TAB.CHEW PO ONE (08:25)
--- NOTE | 2019-03-06 08:32 | ED ---
HPI Chest Pain - HPI Summary HPI Summary: 69 year old F presenting to [facility] accompanied by with a chief complaint of chest pain described as "getting broken" since yesterday evening while patient was going to bed. The patient rates the pain 9/10 in severity. Symptoms aggravated by nothing. Symptoms alleviated by nothing. Patient reports nausea. Patient denies shortness of breath and vomiting. 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 Patient has hx CT in 2003. Her last stress test was more than 10 years ago. - History of Current Complaint Chief Complaint: EDChestPainROMI Hx Obtained From: Patient Onset/Duration: Started Hours Ago - yesterday evening, Still Present Timing: Constant Current Severity: Moderate Pain Intensity: 7 Pain Scale Used: 0-10 Numeric Character: Other: - "Getting broken" Aggravating Factor(s): Nothing Alleviating Factor(s): Nothing Associated Signs and Symptoms: Positive: Negative - shortness of breath, vomiting, Nausea - Allergy/Home Medications Allergies/Adverse Reactions: Allergies Allergy/AdvReac Type Severity Reaction Status Date / Time chlorhexidine Allergy Rash Verified 03/06/19 08:27 egg Allergy Hives Verified 03/06/19 08:27 Iodine and Iodide Containing Allergy Rash Verified 03/06/19 08:27 Produc Penicillins Allergy Hives Verified 03/06/19 08:27 Askjayh-Zok-Rlh Reductase Allergy Rash Verified 03/06/19 13:04 Inhibitor telmisartan Allergy Hives Verified 03/06/19 08:27 Home Medications: Home Medications Multivitamin with Minerals [One Daily Complete] 1 each PO DAILY 03/06/19 [ History Confirmed 03/06/19] Nitroglycerin 0.4 mg PO SEE INSTRUCTIONS PRN 03/06/19 [History Confirmed ] PMH/Surg Hx/FS Hx/Imm Hx Previously Healthy: No Endocrine/Hematology History: Reports: Hx Diabetes - PREDIABETIC-PATIENT WOULD PREFER TO AVOID IV GLUCOSE IF POSSIBLE Cardiovascular History: Reports: Hx Angina, Hx Coronary Artery Disease, Hx Hypertension - ON MEDICATION FOR, Hx Myocardial Infarction - 2003 Denies: Hx Hypercholesterolemia, Hx Pacemaker/ICD, Hx Valvular Heart Disease Respiratory History: Denies: Hx Asthma, Hx Chronic Obstructive Pulmonary Disease (COPD) History: Denies: Hx Renal Disease Musculoskeletal History: Reports: Hx Arthritis Sensory History: Reports: Hx Contacts or Glasses - GLASSES Denies: Hx Hearing Aid Opthamlomology History: Reports: Hx Contacts or Glasses - GLASSES Psychiatric History: Denies: Hx Panic Disorder - Cancer History Cancer Type, Location and Year: skin CA - Surgical History Surgery Procedure, Year, and Place: ANGIOGRAM. ORAL SURGERY. right UNDERARM CYST REMOVED-07/2017-dr. mitchell. [facility] DISCECTOMY/LAMINECTOMY Hx Anesthesia Reactions: No Infectious Disease History: No Infectious Disease History: Denies: Traveled Outside the [place] in Last 30 Days - Family History Known Family History: Positive: Cardiac Disease, Diabetes - Social History Alcohol Use: Occasionally Hx Substance Use: No Substance Use Type: Reports: None Hx Tobacco Use: No Smoking Status (MU): Never Smoked Tobacco Review of Systems Positive: Chest Pain Negative: Shortness Of Breath Positive: Nausea. Negative: Vomiting All Other Systems Reviewed And Are Negative: Yes Physical Exam - Summary Physical Exam Summary: VITAL SIGNS: Reviewed. GENERAL: Patient is a well-developed and nourished FEMALE who is lying comfortable in the stretcher. Patient is not in any acute respiratory distress. Patient is in some distress secondary to the chest pain. HEAD AND FACE: No signs of trauma. No ecchymosis, hematomas or skull depressions. No sinus tenderness. EYES: PERRLA, EOMI x 2, No injected conjunctiva, no nystagmus. EARS: Hearing grossly intact. Ear canals and tympanic membranes are within normal limits. MOUTH: Oropharynx within normal limits. NECK: Supple, trachea is midline, no adenopathy, no JVD, no carotid bruit, no c- spine tenderness, neck with full ROM. CHEST: Symmetric, no tenderness at palpation LUNGS: Clear to auscultation bilaterally. No wheezing or crackles. CVS: Regular rate and rhythm, S1 and S2 present, no murmurs or gallops appreciated. ABDOMEN: Soft, non-tender. No signs of distention. No rebound no guarding, and no masses palpated. Bowel sounds are normal. EXTREMITIES: FROM in all major joints, no edema, no cyanosis or clubbing. NEURO: Alert and oriented x 3. No acute neurological deficits. Speech is normal and follows commands. SKIN: Dry and warm. Triage Information Reviewed: Yes Vital Signs On Initial Exam: Initial Vitals Temp Pulse Resp BP Pulse Ox 98.4 F 64 16 175/92 98 03/06/19 08:21 03/06/19 08:21 03/06/19 08:21 03/06/19 08:21 03/06/19 08:21 Vital Signs Reviewed: Yes Diagnostics - Vital Signs Vital Signs Temp Pulse Resp BP Pulse Ox 03/06/19 08:21 98.4 F 64 16 175/92 98 - Laboratory Result Diagrams: 03/06/19 09:02 03/06/19 09:02 Lab Statement: Any lab studies that have been ordered have been reviewed, and results considered in the medical decision making process. - Radiology CXR Radiology Interpretation Completed By: Radiologist Summary of Radiographic Findings: NO ACTIVE CARDIOPULMONARY DISEASE. ED physician has reviewed this report. - EKG 0827 Cardiac Rate: NL - 65 BPM EKG Rhythm: Sinus Rhythm EKG Comparison: No Significant Change - 09/25/17 Summary of EKG Findings: ST depressions in V2-V6 which are same as before from 09/25/17 Chest Pain Course/Dx - Course Assessment/Plan: 69 year old F [place] [facility] accompanied by with a chief complaint of chest pain described as "getting broken" since yesterday evening while patient was going to bed. The patient rates the pain 9/10 in severity. Symptoms aggravated by nothing. Symptoms alleviated by nothing. Patient reports nausea. Patient denies shortness of breath and vomiting. 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 Patient has hx CT in 2003. Her last stress test was more than 10 years ago. Past medical history significant for hypertension, GERD, dyslipidemia, CAD, status post catheterization in 2004. EKG impression: Normal sinus rhythm without any ST elevations. The patient has ST depressions from V2 to V6. EKG is similar to previous EKG done. Because of the patients reported chest pain, the patient was given nitroglycerin, aspirin, and morphine for the chest pain. Test results without any significant abnormality except for potassium level of 3.4, and troponin is 0.08. Chest x-ray impression: no active cardiopulmonary disease. At this point, I discussed my physical exam and findings with Dr. Magallon from cardiology and he will consult for this patient. He also recommended to start the patient on heparin. I would place the patient nothing by mouth if the patient is taken to the catheter lab. I discussed my physical exam, findings, and test results with Dr. Sheets from the hospitalist services and she agrees to admit patient to his services. Patient is hemodynamically stable alert and oriented x 3. - Chest Pain Differential Diagnosis/HQI/PQRI: Acute CT, ACS, Angina, CHF, Chest Wall, GI Disease, Lower Respiratory Infection, Pulmonary Edema - Diagnoses Provider Diagnoses: NSTEMI (non-ST elevated myocardial infarction) - Provider Notifications Discussed Care Of Patient With: Casey Magallon Time Discussed With Above Provider: 10:30 Instructed by Provider To: Other - Dr. Magallon, cardiology, agrees to consult. Spoke with Dr. Sheets, hospitalist, at 1040, who agrees to admit patient. - Critical Care Time Critical Care Time: 30-74 min Discharge - Sign-Out/Discharge Documenting (check all that apply): Patient Departure - Admit Patient Received Moderate/Deep Sedation with Procedure: No - Discharge Plan Condition: Stable Disposition: ADMITTED TO [facility] - Billing Disposition and Condition Condition: STABLE Disposition: Admitted to [facility] - Attestation Statements Document Initiated by Scribe: Yes Documenting Scribe: Lory Mortensen Provider For Whom Oziele is Documenting (Include Credential): Holden Meeks MD Scribe Attestation: I, Loyr Mortensen, scribed for Holden Meeks MD on 03/06/19 at 1848. Scribe Documentation Reviewed: Yes Provider Attestation: The documentation as recorded by the scribeLory accurately reflects the service I personally performed and the decisions made by me, Holden Meeks MD Status of Scribe Document: Viewed
[2019-03-06] MEDS ORDERED: Nitroglycerin TAB 0.4 MG* 0.4 MG TAB SL ONE (08:33)
[2019-03-06] MEDS ORDERED: Morphine 4 MG/ML VIAL (1 ml) 4 MG/ML VIAL IV ONE (08:33)
[2019-03-06 09:20] LABS: ABS Eosinophils 0.2 10^3/ul (0-0.6); ABS Lymphocytes 2.8 10^3/ul (1.0-4.8); ABS Monocytes 0.6 10^3/ul (0-0.8); Eosinophil % 2.1 %; Hematocrit 40 % (35-47); Hemoglobin 13.5 g/dL (12.0-16.0); Lymphocyte % 37.1 %; Mean Corpuscular HGB Conc 34 g/dL (31-36); Mean Corpuscular Hemoglobin 30 pg (27-31); Mean Corpuscular Volume 88 fL (80-97); Mean Platelet Volume 8.5 fL (7.4-10.4); Nucleated Red Blood Cells % 0.1; Platelet Count 256 10^3/uL (150-450); Red Blood Count 4.56 10^6 /uL (3.70-4.87); Red Cell Distribution Width 13 % (10.5-15); White Blood Count 7.5 10^3/uL (3.5-10.8)
[2019-03-06 09:37] LABS: Activated Partial Thrombo Time 30.9 seconds (26.0-38.0); INR 0.98 (0.82-1.09)
[2019-03-06 09:50] LABS: ALT 18 U/L (7-52); AST 19 U/L (13-39); Albumin 4.2 g/dL (3.2-5.2); Albumin/Globulin Ratio 1.4 (1-3); Alkaline Phosphatase 55 U/L (34-104); Anion Gap 8 mmol/L (2-11); Blood Urea Nitrogen 16 mg/dL (6-24); CO2 Carbon Dioxide 28 mmol/L (22-32); Calcium 9.2 mg/dL (8.6-10.3); Chloride 103 mmol/L (101-111); Creatine Kinase 50 U/L (10-223); EGFR African American 85.6 (>60); EGFR Non-African American 70.7 (>60); Globulin 2.9 g/dL (2-4); Glucose 123 mg/dL (70-100); Magnesium 2.1 mg/dL (1.9-2.7); Potassium 3.4 mmol/L (3.5-5.0); Sodium 139 mmol/L (135-145); Total Protein 7.1 g/dL (6.4-8.9)
[2019-03-06 09:54] LABS: CKMB ng/mL 2.4 ng/mL (0.6-6.3)
[2019-03-06 10:06] LABS: TSH (Thyroid Stimulating Horm) 2.62 mcIU/mL (0.34-5.60); Troponin I 0.08 ng/mL (<0.04)
[2019-03-06 10:29] LABS: Folate 9.22 ng/mL (>3.99)
[2019-03-06] MEDS ORDERED: Heparin for STEMI(*) 5,000 UNITS/ML 1 ML VIAL IV ONE (10:32)
[2019-03-06] MEDS ORDERED: KCL 10 MEQ/50 ML IVPREMIX* 10 MEQ/50 ML BAG IV ONE (10:41)
[2019-03-06] MEDS ORDERED: Morphine INJ* 2 MG/ML 1 ML SYRINGE (TWO MG - NEW SYRINGE VERSION) IV PRN (10:47)
[2019-03-06] MEDS ORDERED: Al Hydrox/Mg Hydrox/Simet LIQ* 30 ML UDC PO PRN (10:47)
[2019-03-06] MEDS ORDERED: Nitroglycerin TAB 0.4 MG* 0.4 MG TAB PO PRN (10:50)
[2019-03-06 10:58] LABS: Cholesterol 218 mg/dL; LDL Cholesterol 145 mg/dL; Triglycerides 116 mg/dL
[2019-03-06] MEDS ORDERED: Heparin 2 UNITS/ML IVPREMIX* 1 ML in NS 0.9% 50 ML* 1 ML IV SCH (11:00)
[2019-03-06] MEDS ORDERED: nitroGLYCERIN DRIP* 25,000 MCG/250 ML BTL IV SCH (12:00)
[2019-03-06] MEDS: Heparin DRIP 25,000 UNITS(*) 25,000 UNITS/500 ML BAG IV SCH (12:01)
[2019-03-06] MEDS ORDERED: Potassium Chlor TAB* 20 MEQ TAB.ER PO ONE (12:22)
[2019-03-06 13:02] LABS: Urine Appearance Clear; Urine Bilirubin Negative (Negative); Urine Blood Negative (Negative); Urine Color Straw; Urine Glucose Negative (Negative); Urine Ketones Negative (Negative); Urine Nitrite Negative (Negative); Urine Protein Negative (Negative); Urine Specific Gravity 1.008 (1.010-1.030); Urine Urobilinogen Negative (Negative)
[2019-03-06 13:49] LABS: Troponin I 0.15 ng/mL (<0.04)
--- NOTE | 2019-03-06 13:53 | CONS ---
CONSULTATION REPORT: DATE OF CONSULT: 03/06/19 ATTENDING PHYSICIAN: Dr. Magallon, Cardiology* (dictated by Lida Whitaker NP). PRIMARY AIRBRUSH ARTIST PHOTOGRAPHY: Reid, Dr. Bennett, last seen 07/19/18. PRIMARY PHYSICIAN: Dr. Dey. REASON FOR CONSULTATION: Complaints of chest pain with troponin elevation and nonspecific anterolateral T-wave changes. CHIEF COMPLAINT: Chest pain. HISTORY OF PRESENT ILLNESS: This is a pleasant 69-year-old female patient with a notable history of coronary artery disease, who suffered from myocardial infarction in September 2004 according to medical records while in [place]. She underwent a left heart catheterization on 11/01/04. At that time, she had single-vessel disease involving an occluded and collateralized LAD. She was treated medically with medication. Her ejection fraction at that time was preserved. She also has history of hypertension, hyperlipidemia with statin intolerance. The patient states that she had been in her usual state of health up until about 02/05/19. At that point in time, she was in [facility] at a rehabilitation center for her lower back. On 02/05/19, she started to develop fever, chills, cough with positive sputum production. She was seen by a physician at the facility and prescribed an antibiotic. She states that symptoms improved. She flew back to [facility] on 02/18/19. Since then she has been feeling more fatigued than usual. Apparently last night at 10 p.m. while lying down trying to go bed, she developed epigastric discomfort. She took a total of 3 sublingual nitroglycerin and pain resolved. She is able to sleep last night with no episodes. She woke up at 6 a.m. and was feeling fine. Around 7 a.m., she developed recurrent epigastric discomfort radiating into her chest and bilateral upper extremities. She denies associated diaphoresis, shortness of breath, or dizziness. She states that discomfort is very similar to when she had a heart attack in 2003, although at this time she is not having shortness of breath. She opted to be evaluated at the emergency department due to ongoing symptoms despite taking 3 sublingual nitroglycerin prior to arrival. While being evaluated in the emergency department, she was given 4 baby aspirin and additional sublingual nitroglycerin that reduced pain to current 3/ 10. She denies any other recent illness. Denies shortness of breath. Denies calf pain or swelling. Denies history of blood clot. She reports compliance with medication, although upon review of prior medical records, it appears that she was previously evaluated by Dr. Apple in [place] due to her dyslipidemia, prescribed Repatha; however, she has not started that medication. Last echocardiogram according to her medical records in [facility] was 02/13/05. At that time, LVEF was visually estimated at 55%. Mild mitral and tricuspid insufficiency. Right ventricular systolic pressure 23 mmHg. The left ventricle showed mild septal hypertrophy and normal chamber diameter. The distal septum did have severe hypokinesis. The mid portion of the septum had severe hypokinesis to akinesis. Last ischemic evaluation via exercise, Myoview at [facility] in July 2014. At that time, myocardial perfusion imaging revealed septal wall infarct with associated radu-infarct ischemia induced by stress. EF 62%. She had ST-segment depression in lead II, III, aVF and V2 through V6 that lasted greater than 6 minutes into recovery. She exercised for 7 minutes and 11 seconds and achieved 10.1 METs. PAST MEDICAL HISTORY: Notable for: 1. Coronary artery disease, medically treated. 2. Occluded LAD. 3. Hyperlipidemia. 4. Hypertension. PAST SURGICAL HISTORY: Includes: 1. Lumbar laminectomy. 2. Cardiac catheterization in 2004. MEDICATIONS: Home medications include: 1. Aspirin 81 mg p.o. b.i.d. 2. Atenolol 50 mg p.o. daily at night time. 3. Norvasc 5 mg a day. 4. Micardis 80 mg a day. 5. Sublingual nitroglycerin p.r.n. 6. Ranitidine 150 mg twice a day. 7. Fish oil 1000 mg p.o. daily. ALLERGIES: Include eggs, which causes hives. She reports multiple statin intolerances, all of which induced myalgias. Denies allergy to contrast dye, shell fish or aspirin. FAMILY HISTORY: Noncontributory. SOCIAL HISTORY: The patient is and lives at home with her . 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 She has never smoked tobacco products. Consumes alcohol occasionally. Denies illegal drug use. In regards to activities, she walks half mile a day with no exertional symptoms per patient. REVIEW OF SYSTEMS: All systems have been reviewed and otherwise negative except what is above mentioned in the HPI. PHYSICAL EXAM: The patient is lying in bed upon entering room, cooperative with exam. She is well nourished, in no apparent distress. HEENT: Head is atraumatic and normocephalic. Oral mucosa is moist. Tongue is midline. Cardiac: Normal S1 and S2. Regular rate and rhythm. No murmur, rub, or gallop noted. Lungs: Auscultated posteriorly. No evidence of adventitious breath sounds. Respirations are nonlabored. /GI: Abdomen is soft, nontender , nondistended. Normoactive bowel sounds x4. No hepatomegaly with palpation. Extremities: No pedal edema. No clubbing. No cyanosis. She does have a jocy noted on her right forearm. DIAGNOSTIC STUDIES/LAB DATA: Blood work obtained while at [facility] in the emergency department includes initial troponin elevated at 0.08. Sodium 139, potassium 3.4, chloride 103, carbon dioxide 28, creatinine 0.80, glucose 123. White count 7.5, hemoglobin 13.5, hematocrit 40, platelets 256. EKG obtained at [facility] on 03/06/19; sinus rhythm at a rate of 65 with less than [address]-segment depression noted in anterolateral leads with biphasic anterolateral T-wave changes noted. Chest x-ray on 03/06/19, negative for active cardiopulmonary disease per Radiology report. ASSESSMENT AND PLAN: 1. 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 The patient is adamant that she does not want any invasive procedures, even minimally invasive cardiac catheterization. She is aware that there is risk of sudden cardiac or recurrent heart attack and again is adamant that she does not want any procedures performed. She is opting for conservative medical therapy. She is alert and oriented and seemed neurologically intact. At this time, we would recommend starting IV heparin therapy. She states pain is 3/10, thus recommend starting IV nitroglycerin therapy. Continue beta-blockade therapy. Systolic blood pressure 199, however, she has not received morning antihypertensive medications. Would recommend that she receive Norvasc 5 mg a day and to restart Micardis and atenolol therapy. Recommend continuing isoenzymes. Patient should be placed on aspirin 81 mg a day in combination with Plavix 75 mg a day. We will update echocardiogram. She has known occlusion involving the LAD with collateral flow. We will follow closely. 2. Hypokalemia. IV potassium ordered. Recommend K greater than 4. 3. History of dyslipidemia with multiple statin intolerances. She was historically evaluated by Dr. Apple in [place] and was recommended to start Repatha therapy according to her last office note in July 2018. The patient has not started Repatha therapy. Would recommend LDL less than 70. If she is agreeable, would initiate Repatha during admission. 4. History of hypertension. Currently, blood pressure systolic is 199. Would resume home antihypertensive medications. We will optimize according to response. 5. DVT prophylaxis, to be on IV heparin therapy for above #1. 6. Disposition, pending course. Patient states that she desires CPR and full code status, although she would like to further explore options with surgery tech given she would only want trial of intubation, mechanical ventilation. I personally discussed case and plan of care with Dr. Magallon, who agrees with the above assessment and plan. We will continue to follow the patient closely. Please do not hesitate to contact our service with any questions or concerns. LIDA WHITAKER, KARINA [id number]/CPS #: [id number] Chart reviewed, patient examined and d/w Ms. Whitaker and Dr. Sheets on 03.06.19. see handwritten note as well. Patient with known CAD and now with NSTEMI/EKG changes. Potential for mortality and morbidity d/w patient and advised cath. Patient declined cath. Reluctant to have procedures and not happy with her life. Denies suicidal ideation but agreed to speak with a counselor. Observations and recommendations including a psychiatric evaluation for capacity d/w Dr. Sheets. Will continue to follow. [facility]
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
[2019-03-06 16:48] LABS: Troponin I 0.21 ng/mL (<0.04)
[2019-03-06] MEDS ORDERED: Heparin VIAL(*) 5000 UNITS/ML VIAL (FIVE THOUSAND) ONE (17:12)
[2019-03-06] MEDS ORDERED: Atenolol TAB* 50 MG PO SCH (18:00)
[2019-03-06] MEDS ORDERED: Heparin VIAL(*) 5000 UNITS/ML VIAL (FIVE THOUSAND) IV SCH (18:00)
--- NOTE | 2019-03-06 18:01 | ECHO ---
[place] [address] Fax #: [phone] Transthoracic Echocardiogram Patient: Nakita, Height: 62 in / Cassi Mae 157.5 cm : 1950 Weight: 164.7 lb / Study Date: 03/06/2019 74.8 kg Age: 69 BP: 199 / 78 Gender: F BMI/BSA: 30.2 kg/m^2 HR: 56 bpm / 1.76 m^2 *Fire Pilot: * Harini Peguero RDCS RN *Referring Physician: * Casey Magallon MD *Reading Physician: * Casey Magallon MD Indications: Chest Pain, unspecified. History: Coronary artery disease. PMH: Myocardial infarction. Risk factors: Hypertension. Conclusions Summary: Left ventricle: The cavity size is mildly reduced. Wall thickness is mildly to moderately increased. There is mild focal basal hypertrophy. The estimated ejection fraction is 40-45%. Systolic function is worse from the study of 2004 when it was 50-55% with similar decriptions of wall motion abnormalities except that the inferior wall may be more hypokinetic now. Doppler parameters are consistent with abnormal left ventricular relaxation (grade 1 diastolic dysfunction). Study data: Transthoracic echocardiogram. Procedure: Transthoracic echocardiography was performed. Image quality was suboptimal. The study was technically limited due to poor acoustic window availability and body habitus. The patient refused the use of Definity for image enhancement. Complete 2D, spectral Doppler, and color flow Doppler. Patient status: Inpatient. Patient room number: 450-01. The previous study was not available, so comparison is made to the report of 2004. Rhythm: Bradycardia. Findings Left ventricle: The cavity size is mildly reduced. Wall thickness is mildly to moderately increased. There is mild focal basal hypertrophy. The estimated ejection fraction is 40-45%. Systolic function is worse from the study of 2004 when it was 50-55% with similar decriptions of wall motion abnormalities except that the inferior wall may be more hypokinetic now. Regional wall motion abnormalities: Akinesis of the mid-apicalanteroseptal and inferior myocardium. Akinesis and scarring of the mid anterior and mid anteroseptal myocardium; hypokinesis of the basal inferior, mid anterolateral, and apical septal myocardium; mild hypokinesis of the mid-apical inferior myocardium. Cannot visualize the apical anterior and apical myocardium. Doppler parameters are consistent with abnormal left ventricular relaxation (grade 1 diastolic dysfunction). Right ventricle: The cavity size is normal. Systolic function is normal. Left atrium: The atrium is normal in size. Right atrium: The atrium is normal in size. Mitral valve: The leaflets are mildly thickened. There is no evidence of stenosis. There is trace regurgitation. Aortic valve: The valve is trileaflet. The leaflets are mildly thickened. There is no evidence of stenosis. There is no significant regurgitation. Tricuspid valve: The valve is structurally normal. The leaflets are normal thickness. There is trace regurgitation. Pulmonic valve: Not well visualized. There is no significant regurgitation. Aorta: Aortic root: The aortic root is not dilated. Ascending aorta: The ascending aorta is not dilated. Aortic arch: The aortic arch is not dilated. Pericardium: There is no pericardial effusion. Pulmonary arteries: The main pulmonary artery is normal-sized. Systemic veins: Inferior vena cava: The vessel is normal in size. The respirophasic diameter changes are in the normal range (>= 50%). Measurements Left ventricle Value Ref Aortic valve Value Ref DION, LAX (L) 3.5 cm 3.8 - Wiley diam, ED 1.7 cm ---- 5.2 Peak v, S 1.3 m/sec ---- ESD, LAX 2.3 cm 2.2 - VTI, S 27.3 cm ---- 3.5 Mean grad, S 4.0 mm Hg ---- FS, LAX 34 % 27 - 45 Peak grad, S 7.0 mm Hg ---- PW, ED, LAX (H) 1.2 cm 0.6 - LVOT/AV, VTI ratio 0.73 ---- 0.9 IVS/PW, ED 1.12 -------- Mitral valve Value Ref PW/ID, ED 0.34 -------- Peak E 0.71 m/sec ---- E', lat wiley, TDI (L) 6.7 cm/sec >=10.0 Peak A 1.17 m/sec -- -- E/e', lat wiley, TDI 11 -------- Decel time 282 ms ---- E', med wiley, TDI (L) 5.1 cm/sec >=7.0 Peak grad, D 2.0 mm Hg -- -- E/e', med wiley, TDI 14 -------- Peak E/A ratio 0.6 ---- E', avg, TDI 5.9 cm/sec -------- E/e', avg, TDI 12 <=14 Pulmonic valve Value Re f Peak v, S 0.91 m/sec ---- LVOT Value Ref Peak grad, S 3.0 mm Hg ---- Peak cristi, S 0.95 m/sec -------- VTI, S 19.9 cm -------- Aortic root Value Ref Mean grad, S 2 mm Hg -------- Root diam 2.7 cm <4.0 Ventricular septum Value Ref Ascending aorta Value Ref IVS, ED (H) 1.3 cm 0.6 - AAo AP diam, S 3.4 cm ---- 0.9 Aortic arch Value Ref Right ventricle Value Ref Arch diam 2.2 cm ---- DINO, LAX 2.7 cm -------- DINO minor ax, A4C 3.0 cm 1.9 - Decending aorta Value Ref mid 3.5 Elvia peak cristi 0.54 m/sec ---- Left atrium Value Ref Inferior vena cava Value Ref ML dim, A4C 3.0 cm -------- Diam 1.3 cm ---- SI dim, A4C 4.8 cm -------- Vol/bsa, ES, 1-p 21 ml/m^2 11 - 40 A4C Vol/bsa, ES, A/L 22 ml/m^2 16 - 34 Right atrium Value Ref ML dim, ES, A4C 3.8 cm 2.6 - 4.4 SI dim, ES, A4C 4.3 cm 3.4 - 5.3 Estimated RAP 3 mm Hg -------- Legend: (L) and (H) jocy values outside specified reference range. Prepared and electronically signed by Casey Magallon MD 03/06/2019 18:00
[2019-03-06] MEDS: amLODIPine TAB* 5 MG PO SCH (19:36)
[2019-03-06] MEDS: Enalapril TAB* 5 MG PO SCH (19:36)
[2019-03-06] MEDS: Isosorbide Dinitrate TAB* 10 MG PO SCH ×2 (19:36→19:37)
[2019-03-06 20:58] LABS: Troponin I 0.33 ng/mL (<0.04)
[2019-03-06] MEDS ORDERED: Aspirin EC TAB* 81 MG TAB.EC PO SCH (21:00)
[2019-03-06] MEDS ORDERED: Atorvastatin* 40 MG TAB PO SCH (21:00)
[2019-03-07 05:59] LABS: ABS Basophils 0.1 10^3/ul (0-0.2); ABS Eosinophils 0.2 10^3/ul (0-0.6); ABS Lymphocytes 3.4 10^3/ul (1.0-4.8); ABS Monocytes 0.7 10^3/ul (0-0.8); ABS Neutrophils 4.5 10^3/ul (1.5-7.7); Eosinophil % 2.4 %; Hematocrit 38 % (35-47); Hemoglobin 12.7 g/dL (12.0-16.0); Lymphocyte % 38.2 %; Mean Corpuscular HGB Conc 33 g/dL (31-36); Mean Corpuscular Hemoglobin 30 pg (27-31); Mean Corpuscular Volume 89 fL (80-97); Nucleated Red Blood Cells % 0.1; Platelet Count 259 10^3/uL (150-450); Red Blood Count 4.32 10^6 /uL (3.70-4.87); Red Cell Distribution Width 14 % (10.5-15); White Blood Count 8.9 10^3/uL (3.5-10.8)
[2019-03-07 06:16] LABS: Anion Gap 5 mmol/L (2-11); BUN/Creatinine Ratio 15.1 (8-20); Blood Urea Nitrogen 14 mg/dL (6-24); CO2 Carbon Dioxide 27 mmol/L (22-32); Calcium 8.6 mg/dL (8.6-10.3); Chloride 106 mmol/L (101-111); EGFR African American 71.9 (>60); EGFR Non-African American 59.4 (>60); Glucose 136 mg/dL (70-100); Potassium 3.7 mmol/L (3.5-5.0); Sodium 138 mmol/L (135-145)
[2019-03-07 06:26] LABS: Troponin I 0.49 ng/mL (<0.04)
[2019-03-07 06:36] LABS: INR 1.04 (0.82-1.09)
[2019-03-07] MEDS: Enalapril TAB* 5 MG PO SCH (10:47)
[2019-03-07] MEDS: Aspirin EC TAB* 81 MG TAB.EC PO SCH (10:55)
[2019-03-07] MEDS: Losartan TAB* 25 MG PO SCH (10:55)
[2019-03-07] MEDS: Isosorbide Dinitrate TAB* 10 MG PO SCH (10:56)
[2019-03-07] MEDS: Clopidogrel TAB* 75 MG PO SCH (10:56)
[2019-03-07] MEDS: Ascorbic Acid TAB* 500 MG PO SCH (10:56)
--- NOTE | 2019-03-07 12:42 | PN ---
<Lida Whitaker - Last Filed: 03/07/19 13:00> Subjective Date of Service: 03/07/19 - Chest pain with troponin elevation Interval History: No events last night. I spoke to Abraham RN caring for patient who states she is refusing morning medications. She states she thought we didn't want her to take her medications? She denies chest pain since she presented to [facility], denies SOB, dizziness, palpitations. She states she still does not want a cardiac catheterization because her instincts tell her not to. Her was present at bedside. She gave me verbal permission in front of Abraham RN to speak about her medical state. She adds that she Medications Active Medications: Al Hydrox/Mg Hydrox/Simethicone (Maalox Plus*) 30 ml PO Q6H PRN PRN Reason: INDIGESTION Amlodipine Besylate (Norvasc Tab*) 5 mg PO QPM [facility] Last Admin: 03/06/19 19:36 Dose: 5 mg Ascorbic Acid (Vitamin C Tab*) 500 mg PO QAM [facility] Last Admin: 03/07/19 10:56 Dose: 500 mg Aspirin (Aspirin Ec Tab*) 81 mg PO DAILY [facility] Last Admin: 03/07/19 10:55 Dose: 81 mg Atenolol (Tenormin Tab*) 50 mg PO QPM [facility] Last Admin: 03/06/19 19:36 Dose: 50 mg Clopidogrel Bisulfate (Plavix Tab*) 75 mg PO DAILY [facility] Last Admin: 03/07/19 10:56 Dose: 75 mg Heparin Sodium (Porcine) (Heparin Vial(*)) 0 units IV .PER PROTOCOL [facility] Last Admin: 03/06/19 17:22 Dose: 1,800 units Heparin Sodium/Dextrose (Heparin Drip 25,000 Units(*)) 25,000 units in 500 mls @ 0 mls/hr IV PER RATE [facility]; Protocol Last Admin: 03/06/19 12:01 Dose: 14 mls/hr Isosorbide Mononitrate (Imdur Er Tab*) 30 mg PO DAILY [facility] Losartan Potassium (Cozaar Tab*) 100 mg PO DAILY [facility]; Protocol Last Admin: 03/07/19 10:55 Dose: 100 mg Morphine Sulfate (Morphine Inj (Syringe))*) 2 mg IV Q4H PRN PRN Reason: PAIN - MILD Objective Vital Signs: Temp Pulse Resp BP Pulse Ox 98.1 F 55 12 143/67 97 03/07/19 03:00 03/07/19 03:00 03/07/19 03:00 03/07/19 03:00 03/07/19 03:00 Oxygen Devices in Use Now: None Laboratory Results: 03/07/19 05:48 03/07/19 05:48 INR (Anticoag Therapy) 1.04 (0.82-1.09) 03/07/19 05:48 APTT 84.0 seconds (26.0-38.0) H 03/07/19 05:48 Total Bilirubin 0.60 mg/dL (0.2-1.0) 03/06/19 09:02 AST 19 U/L (13-39) 03/06/19 09:02 ALT 18 U/L (7-52) 03/06/19 09:02 Alkaline Phosphatase 55 U/L (34-104) 03/06/19 09:02 CK-MB (CK-2) 2.4 ng/mL (0.6-6.3) 03/06/19 09:02 B-Natriuretic Peptide 91 pg/mL (<=100) 03/06/19 09:02 Total Protein 7.1 g/dL (6.4-8.9) 03/06/19 09:02 Albumin 4.2 g/dL (3.2-5.2) 03/06/19 09:02 Globulin 2.9 g/dL (2-4) 03/06/19 09:02 Albumin/Globulin Ratio 1.4 (1-3) 03/06/19 09:02 Triglycerides 116 mg/dL 03/06/19 09:02 Cholesterol 218 mg/dL 03/06/19 09:02 LDL Cholesterol 145 mg/dL 03/06/19 09:02 HDL Cholesterol 50.0 mg/dL 03/06/19 09:02 TSH 2.62 mcIU/mL (0.34-5.60) 03/06/19 09:02 03/06/19 03/06/19 03/06/19 09:02 12:58 16:06 Troponin I 0.08 H* 0.15 H* 0.21 H* 03/06/19 03/07/19 20:23 05:48 Troponin I 0.33 H* 0.49 H* Diagnostic Imaging: *[facility]* [place] [address] Fax #: [phone] Transthoracic Echocardiogram Patient: Nakita, Height: 62 in / Cassi Mae 157.5 cm : 1950 Weight: 164.7 lb / Study Date: 03/06/2019 74.8 kg Age: 69 BP: 199 / 78 Gender: F BMI/BSA: 30.2 kg/m^2 HR: 56 bpm / 1.76 m^2 *Geography Faculty Member: * Harini Peguero RDCS RN *Referring Physician: * Casey Magallon MD *Reading Physician: * Casey Magallon MD Indications: Chest Pain, unspecified. History: Coronary artery disease. PMH: Myocardial infarction. Risk factors: Hypertension. Conclusions Summary: Left ventricle: The cavity size is mildly reduced. Wall thickness is mildly to moderately increased. There is mild focal basal hypertrophy. The estimated ejection fraction is 40-45%. Systolic function is worse from the study of 2004 when it was 50-55% with similar decriptions of wall motion abnormalities except that the inferior wall may be more hypokinetic now. Doppler parameters are consistent with abnormal left ventricular relaxation (grade 1 diastolic dysfunction). Study data: Transthoracic echocardiogram. Procedure: Transthoracic echocardiography was performed. Image quality was suboptimal. The study was technically limited due to poor acoustic window availability and body habitus. The patient refused the use of Definity for image enhancement. Complete 2D, spectral Doppler, This report is only to be considered final once signed by the Provider(s) as displayed in the "<Electronically Signed by >" field (s). Absence of a signature indicates the report is in a draft status and still needs to be finalized. In the event this document was created by someone other than the signing Provider, the individual initiating the document will be listed in the "Entered by:" or "Dictated by:" greer. EKG Data: 03/07/2019; Sinus rhythm rate 55 with poor rwp, non specific lateral TW abnormalities. Assessment/Plan #1 c/p chest pain with troponinemia; pain resolved with nitrates and IV heparin no reoccurrence since 03/06/2019. Opted for medical therapy. There is concern about patient having the capacity to make [facility]. Today, she informed me that her instincts tell her to not have [facility] and that she can predict things and referred to herself being a witch. I notified primary team so evaluation by psych could be expedited. She is on ASA 81/day, Plavix 75 mg/day, Atenolol, Isosorbide and statin therapy. Will switch Isosorbide Dinitrate to Imdur therapy. Continue IV heparin given troponin has not peaked. no recurrent c/o chest pain since yesterday. 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 Will change Atenolol to Toprol therapy, continue ARB therapy. Consider Aldactone in the future. She is compensated on exam #3 h/o HLD with statin intolerance. Was previously evaluated by Dr. Apple in [place] and prescribed PCSK9 inhibitor but she never started it. Goal LDL < 70 #4 h/o HTN; BP currently controlled on current medication regimen. #5 Disposition pending course. Patient full code. Attending: Casey Magallon <Casey Magallon - Last Filed: 03/07/19 21:04> Medications Active Medications: Al Hydrox/Mg Hydrox/Simethicone (Maalox Plus*) 30 ml PO Q6H PRN PRN Reason: INDIGESTION Amlodipine Besylate (Norvasc Tab*) 5 mg PO QPM [facility] Last Admin: 03/07/19 17:54 Dose: 5 mg Ascorbic Acid (Vitamin C Tab*) 500 mg PO QAM [facility] Last Admin: 03/07/19 10:56 Dose: 500 mg Aspirin (Aspirin Ec Tab*) 81 mg PO DAILY [facility] Last Admin: 03/07/19 10:55 Dose: 81 mg Clopidogrel Bisulfate (Plavix Tab*) 75 mg PO DAILY [facility] Last Admin: 03/07/19 10:56 Dose: 75 mg Heparin Sodium (Porcine) (Heparin Vial(*)) 0 units IV .PER PROTOCOL [facility] Last Admin: 03/06/19 17:22 Dose: 1,800 units Heparin Sodium/Dextrose (Heparin Drip 25,000 Units(*)) 25,000 units in 500 mls @ 0 mls/hr IV PER RATE [facility]; Protocol Last Admin: 03/06/19 12:01 Dose: 14 mls/hr Isosorbide Mononitrate (Imdur Er Tab*) 30 mg PO DAILY [facility] Losartan Potassium (Cozaar Tab*) 100 mg PO DAILY [facility]; Protocol Last Admin: 03/07/19 10:55 Dose: 100 mg Metoprolol Succinate (Toprol Xl Tab*) 100 mg PO DAILY@1999 [facility] Last Admin: 03/07/19 19:56 Dose: 100 mg Morphine Sulfate (Morphine Inj (Syringe))*) 2 mg IV Q4H PRN PRN Reason: PAIN - MILD Objective Vital Signs: Temp Pulse Resp BP Pulse Ox 98.3 F 64 18 146/58 95 03/07/19 19:26 03/07/19 19:26 03/07/19 11:22 03/07/19 19:26 03/07/19 19:26 Laboratory Results: 03/07/19 05:48 03/07/19 05:48 INR (Anticoag Therapy) 1.04 (0.82-1.09) 03/07/19 05:48 APTT 73.7 seconds (26.0-38.0) H 03/07/19 19:00 Total Bilirubin 0.60 mg/dL (0.2-1.0) 03/06/19 09:02 AST 19 U/L (13-39) 03/06/19 09:02 ALT 18 U/L (7-52) 03/06/19 09:02 Alkaline Phosphatase 55 U/L (34-104) 03/06/19 09:02 CK-MB (CK-2) 2.4 ng/mL (0.6-6.3) 03/06/19 09:02 B-Natriuretic Peptide 91 pg/mL (<=100) 03/06/19 09:02 Total Protein 7.1 g/dL (6.4-8.9) 03/06/19 09:02 Albumin 4.2 g/dL (3.2-5.2) 03/06/19 09:02 Globulin 2.9 g/dL (2-4) 03/06/19 09:02 Albumin/Globulin Ratio 1.4 (1-3) 03/06/19 09:02 Triglycerides 116 mg/dL 03/06/19 09:02 Cholesterol 218 mg/dL 03/06/19 09:02 LDL Cholesterol 145 mg/dL 03/06/19 09:02 HDL Cholesterol 50.0 mg/dL 03/06/19 09:02 TSH 2.62 mcIU/mL (0.34-5.60) 03/06/19 09:02 03/06/19 03/06/19 03/06/19 09:02 12:58 16:06 Troponin I 0.08 H* 0.15 H* 0.21 H* 03/06/19 03/07/19 03/07/19 20:23 05:48 12:25 Troponin I 0.33 H* 0.49 H* 0.37 H* Assessment/Plan Points of Discussion: Reviewed with MS. Whitaker. Pt visited but asleep; at bedside. He reports she had no cp today. Psychiatry consult appreciated. Patient has capacity as per this evaluation. Despite concerning ACS presentation, patient is declining cath and at times medications despite understanding risk of PA/. Prognosis guarded. Continue medical rx as per patient's request.
[2019-03-07 13:17] LABS: Troponin I 0.37 ng/mL (<0.04)
--- NOTE | 2019-03-07 15:07 | CONSULT ---
Consult Consult: Consult for Medical Decision Making Capacity S: Psychiatry is asked to evaluate capacity in this 69 y.o. , white, [place] immigrant female with a history of coronary artery disease who is currently admitted to the hospitalist service for work up of significant recent angina and who is subsequently refusing cardiac catheterization despite elevations in her troponin values. Cardiology has been consulted and feel LHC is indicated, given the risks of occlusion of coronary arteries. Risks of not following through with LHC include massive TN and sudden . Apparently, the patient endorsed odd beliefs in telling the primary team her reasons for refusing the procedure and they would like to confirm whether she has the ability to make an informed choice about it. On exam the patient is initially somewhat guarded but otherwise calm and cooperative. She reveals to me her belief that her is having an affair and that her chest pain is a result of the heartache and anxiety she has experienced related to this. She also endorses a number of other beliefs that would be considered odd or magical thinking, such as the ability predict the future based on her dreams, or the insistence that she vividly remembers her own through her mother's uterus. She denies jamin delusions or hallucinations and there is no evidence of the so-called negative symptoms of schizophrenia such as abulia or affective blunting. Ms. Mace describes herself as an intuitive person and reports that her current intuition is to decline, or at least delay the LHC procedure. In so doing, she acknowledges the risk of heart attack and . For now, she is hoping to stay in the hospital and have her cardiac enzymes monitored. She denies further chest pain at this time. O: aging white female with brownish hair and spectacles; dressed in patient gown with fair grooming; speech has slow rate but fluent with heavy slavic accent; anxious mood with a constricted affect; denies SI or HI; demonstrates mild paranoia, mostly towards her ; insight and judgment fair given acceptance of further monitoring and care; initially asleep but easily awoken; oriented completely to person, place, time and situation. A/P: Capacity: During our interaction, Ms. Mace demonstrated a reasonable understanding of her illness and the events leading to hospitalization. She could articulate and have a reciprocal conversation about both the treatment that has been recommended and the risks of refusing said treatment. In my judgment, she has the capacity to make an informed decision about refusing cardiac catheterization. Capacity is subject to change in these situations and psychiatry, while signing off, can be re-consulted in the event of any significant changes in the patient's presentation. I have discussed these findings with the patient and attending hosptialist, Mariana Rubio.
[2019-03-07] MEDS: amLODIPine TAB* 5 MG PO SCH (17:54)
[2019-03-07] MEDS ORDERED: Metoprolol Succinate XL TAB* 100 MG PO SCH (20:00)
--- NOTE | 2019-03-07 21:25 | PN ---
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 Patient reports she is fatigued which is unchanged from yesterday. She continues to refuse cardiac catheterization. Objective Active Medications: Al Hydrox/Mg Hydrox/Simethicone (Maalox Plus*) 30 ml PO Q6H PRN PRN Reason: INDIGESTION Amlodipine Besylate (Norvasc Tab*) 5 mg PO QPM [facility] Last Admin: 03/07/19 17:54 Dose: 5 mg Ascorbic Acid (Vitamin C Tab*) 500 mg PO QAM [facility] Last Admin: 03/07/19 10:56 Dose: 500 mg Aspirin (Aspirin Ec Tab*) 81 mg PO DAILY [facility] Last Admin: 03/07/19 10:55 Dose: 81 mg Clopidogrel Bisulfate (Plavix Tab*) 75 mg PO DAILY [facility] Last Admin: 03/07/19 10:56 Dose: 75 mg Heparin Sodium (Porcine) (Heparin Vial(*)) 0 units IV .PER PROTOCOL [facility] Last Admin: 03/06/19 17:22 Dose: 1,800 units Heparin Sodium/Dextrose (Heparin Drip 25,000 Units(*)) 25,000 units in 500 mls @ 0 mls/hr IV PER RATE [facility]; Protocol Last Admin: 03/06/19 12:01 Dose: 14 mls/hr Isosorbide Mononitrate (Imdur Er Tab*) 30 mg PO DAILY [facility] Losartan Potassium (Cozaar Tab*) 100 mg PO DAILY [facility]; Protocol Last Admin: 03/07/19 10:55 Dose: 100 mg Metoprolol Succinate (Toprol Xl Tab*) 100 mg PO DAILY@1999 [facility] Last Admin: 03/07/19 19:56 Dose: 100 mg Morphine Sulfate (Morphine Inj (Syringe))*) 2 mg IV Q4H PRN PRN Reason: PAIN - MILD Vital Signs - 8 hr 03/07/19 19:26 Temperature 98.3 F Pulse Rate 64 Blood Pressure 146/58 (mmHg) O2 Sat by Pulse 95 Oximetry Oxygen Devices in Use Now: None Appearance: Thin, white female, WD/WN, laying in hospital bed, appearing in NAD Eyes: No Scleral Icterus, PERRLA Ears/Nose/Mouth/Throat: Mucous Membranes Moist Neck: NL Appearance and Movements; NL JVP Respiratory: Symmetrical Chest Expansion and Respiratory Effort, Clear to Auscultation Cardiovascular: NL Sounds; No Murmurs; No JVD, RRR Abdominal: NL Sounds; No Tenderness; No Distention Extremities: No Edema, No Clubbing, Cyanosis Skin: No Rash or Ulcers, - - skin is warm, dry, intact Neurological: Alert and Oriented x 3, NL Muscle Strength and Tone, - - Psych: not responding to internal stimuli Result Diagrams: 03/07/19 05:48 03/07/19 05:48 Assess/Plan/Problems-Billing Assessment: 69 yo white female with PMHx CAD, remote DVT, HLD, nephrolithiasis presents with chest pain and found to have NSTEMI. Patient refuses cardiac catheterization and remains inpatient for medical management. - Patient Problems (1) NSTEMI (non-ST elevated myocardial infarction) Code(s): I21.4 - NON-ST ELEVATION (NSTEMI) MYOCARDIAL INFARCTION SNOMED Code(s ): 79429436 Comment: -patient had prior hx of IL -arrived with chest pain radiating to shoulders, found to have NSTEMI; refused cardiac catheterization; opted for medical management and heparin drip initiated -echo with new LV dysfunction, EF to 40-45% -troponin peaked at 0.49, has since decreased to 0.37 -cardiology consulted and recommend changing atenolol to metoprolol -continuing ARB, statin, amlodpine, and ASA -starting imdur and plavix per cardiology rec -patient is asymptomatic today and continues to refuse cardiac cath despite known risk of sudden (2) Systolic heart failure Code(s): I50.20 - UNSPECIFIED SYSTOLIC (CONGESTIVE) HEART FAILURE SNOMED Code( s): 138934850 Comment: -secondary to new IL -management as above -echo with EF 40-45% -no signs of acute exacerbation (3) Delusional ideas Code(s): F22 - DELUSIONAL DISORDERS SNOMED Code(s): 3609790 Comment: -patient reports being a witch and these feelings are driving her medical decision making -psychiatry was consulted for capacity determination and Dr. Murrieta feels patient has capacity to make decisions for herself -there is possibility of home abuse vs infidelity; social work is involved (4) Hypertensive urgency Code(s): I16.0 - HYPERTENSIVE URGENCY SNOMED Code(s): 050965390 Comment: -has been normotensive today -continued home amlodpine and ARB (pt takes telmisartan at home) -d/c'd atenolol per cardiology recommendation, switched to metoprolol -no concerns for end-organ damage at this time (5) DVT prophylaxis Code(s): Z29.9 - ENCOUNTER FOR PROPHYLACTIC MEASURES, UNSPECIFIED SNOMED Code( s): 009142266 Comment: -on heparin drip for NSTEMI (6) Full code status Code(s): Z78.9 - OTHER SPECIFIED HEALTH STATUS SNOMED Code(s): 799593864 Status and Disposition: to remain inpatient for continued heparin drip
[2019-03-07] MEDS ORDERED: Metoprolol Succinate XL TAB* 50 MG PO SCH (22:00)
[2019-03-08] MEDS: Heparin DRIP 25,000 UNITS(*) 25,000 UNITS/500 ML BAG IV SCH (02:00)
[2019-03-08 06:56] LABS: Anion Gap 7 mmol/L (2-11); BUN/Creatinine Ratio 19.2 (8-20); Blood Urea Nitrogen 19 mg/dL (6-24); CO2 Carbon Dioxide 27 mmol/L (22-32); Calcium 9.2 mg/dL (8.6-10.3); Chloride 106 mmol/L (101-111); EGFR African American 66.9 (>60); EGFR Non-African American 55.3 (>60); Glucose 124 mg/dL (70-100); Potassium 3.9 mmol/L (3.5-5.0); Sodium 140 mmol/L (135-145)
[2019-03-08 07:02] LABS: Troponin I 0.42 ng/mL (<0.04)
[2019-03-08] MEDS: Losartan TAB* 25 MG PO SCH (09:34)
[2019-03-08] MEDS: Isosorbide Mononitrate ER TAB* 30 MG PO SCH (09:34)
[2019-03-08] MEDS: Ascorbic Acid TAB* 500 MG PO SCH (09:34)
[2019-03-08] MEDS: Clopidogrel TAB* 75 MG PO SCH (09:34)
[2019-03-08] MEDS: Aspirin EC TAB* 81 MG TAB.EC PO SCH (09:34)
[2019-03-08] MEDS: amLODIPine TAB* 5 MG PO SCH ×2 (14:50→20:29)
--- NOTE | 2019-03-08 16:16 | PN ---
Subjective Date of Service: 03/08/19 Interval History: Patient today denies CP, SOB. Patient states that "I dont think enough is being done for my heart." Patient denies F/C, N/V, abdominal pain, dysuria, dizziness , diarrhea, or other pain. Patient wondered why she was not on a nitro drip. Patient understood and agreed with the plan of care after it was explained. Family History: Unchanged from Admission Social History: Unchanged from Admission Past Medical History: Unchanged from Admission Objective Active Medications: Al Hydrox/Mg Hydrox/Simethicone (Maalox Plus*) 30 ml PO Q6H PRN PRN Reason: INDIGESTION Amlodipine Besylate (Norvasc Tab*) 5 mg PO BID [facility] Last Admin: 03/08/19 14:50 Dose: 5 mg Ascorbic Acid (Vitamin C Tab*) 500 mg PO QAM [facility] Last Admin: 03/08/19 09:34 Dose: 500 mg Aspirin (Aspirin Ec Tab*) 81 mg PO DAILY [facility] Last Admin: 03/08/19 09:34 Dose: 81 mg Clopidogrel Bisulfate (Plavix Tab*) 75 mg PO DAILY [facility] Last Admin: 03/08/19 09:34 Dose: 75 mg Heparin Sodium (Porcine) (Heparin Vial(*)) 0 units IV .PER PROTOCOL [facility] Last Admin: 03/06/19 17:22 Dose: 1,800 units Heparin Sodium/Dextrose (Heparin Drip 25,000 Units(*)) 25,000 units in 500 mls @ 0 mls/hr IV PER RATE [facility]; Protocol Last Admin: 03/08/19 02:00 Dose: 14 mls/hr Isosorbide Mononitrate (Imdur Er Tab*) 30 mg PO DAILY [facility] Last Admin: 03/08/19 09:34 Dose: 30 mg Losartan Potassium (Cozaar Tab*) 25 mg PO DAILY [facility] Metoprolol Succinate (Toprol Xl Tab*) 25 mg PO BID [facility] Morphine Sulfate (Morphine Inj (Syringe))*) 2 mg IV Q4H PRN PRN Reason: PAIN - MILD Oxygen Devices in Use Now: None Appearance: Patient is a 69yo female who appears stated age and is sitting in the bed in [facility]. Eyes: No Scleral Icterus, PERRLA Ears/Nose/Mouth/Throat: NL Teeth, Lips, Gums, Clear Oropharnyx, Mucous Membranes Moist Neck: NL Appearance and Movements; NL JVP, Trachea Midline Respiratory: Symmetrical Chest Expansion and Respiratory Effort, Clear to Auscultation Cardiovascular: NL Sounds; No Murmurs; No JVD, RRR, No Edema Abdominal: NL Sounds; No Tenderness; No Distention, No Hepatosplenomegaly Lymphatic: No Cervical Adenopathy Extremities: No Edema, No Clubbing, Cyanosis Skin: No Rash or Ulcers, No Nodules or Sclerosis Neurological: Alert and Oriented x 3, NL Sensation, NL Muscle Strength and Tone , - - CN II-XII intact. Result Diagrams: 03/07/19 05:48 03/08/19 06:03 Assess/Plan/Problems-Billing Assessment: 69 yo white female with PMHx CAD, remote DVT, HLD, nephrolithiasis presents with chest pain and found to have NSTEMI. Patient refuses cardiac catheterization and remains inpatient for medical management. - Patient Problems (1) NSTEMI (non-ST elevated myocardial infarction) Current Visit: Yes Status: Acute Code(s): I21.4 - NON-ST ELEVATION (NSTEMI) MYOCARDIAL INFARCTION SNOMED Code(s): 92346550 Comment: - Patient had prior hx of [place] - Arrived with chest pain radiating to shoulders, found to have NSTEMI; refused cardiac catheterization; opted for medical management and heparin drip initiated - Echo with new LV dysfunction, EF to 40-45% - Troponin peaked at 0.49 - Cardiology consulted and recommend changing atenolol to metoprolol due to mortality benefit in HFrEF - Continuing ARB, statin, amlodipine, Plavix, and ASA - Starting imdur and plavix per cardiology rec - Patient is asymptomatic today and continues to refuse cardiac cath despite known risk of sudden (2) Systolic heart failure Current Visit: Yes Status: Acute Code(s): I50.20 - UNSPECIFIED SYSTOLIC ( CONGESTIVE) HEART FAILURE SNOMED Code(s): 048464427 Comment: - Secondary to new [place] or slowly developed from previous MIs - Management as above - Echo with EF 40-45% - No signs of acute exacerbation (3) Delusional ideas Current Visit: Yes Status: Acute Code(s): F22 - DELUSIONAL DISORDERS SNOMED Code(s): 3292811 Comment: - Reported delusional ideas on admission, not mentioned today. - Psychiatry was consulted for capacity determination and Dr. Murrieta feels patient has capacity to make decisions for herself - There is possibility of home abuse vs infidelity; social work is involved (4) DVT prophylaxis Current Visit: Yes Status: Acute Code(s): Z29.9 - ENCOUNTER FOR PROPHYLACTIC MEASURES, UNSPECIFIED SNOMED Code(s): 995625991 Comment: - On heparin drip for NSTEMI - Remote History DVT (5) Full code status Current Visit: Yes Status: Acute Code(s): Z78.9 - OTHER SPECIFIED HEALTH STATUS SNOMED Code(s): 965650608 Status and Disposition: Inpatient for medical management of NSTEMI.
[2019-03-08] MEDS: Metoprolol Succinate XL TAB* 25 MG PO SCH (20:29)
[2019-03-09 06:27] LABS: Troponin I 0.36 ng/mL (<0.04)
[2019-03-09] MEDS: Ascorbic Acid TAB* 500 MG PO SCH (09:32)
[2019-03-09] MEDS: Clopidogrel TAB* 75 MG PO SCH (09:32)
[2019-03-09] MEDS: amLODIPine TAB* 5 MG PO SCH ×2 (09:32→21:11)
[2019-03-09] MEDS: Metoprolol Succinate XL TAB* 25 MG PO SCH ×2 (09:32→21:11)
[2019-03-09] MEDS: Aspirin EC TAB* 81 MG TAB.EC PO SCH (09:32)
[2019-03-09] MEDS: Losartan TAB* 25 MG PO SCH (09:32)
[2019-03-09] MEDS: Isosorbide Mononitrate ER TAB* 30 MG PO SCH (09:32)
[2019-03-09] MEDS ORDERED: Nitroglycerin TAB 0.4 MG* 0.4 MG TAB SL PRN (11:06)
[2019-03-09] MEDS ORDERED: Nitroglycerin TAB 0.4 MG* 0.4 MG TAB ONE (11:08)
[2019-03-09] MEDS ORDERED: Heparin DRIP 25,000 UNITS(*) 25,000 UNITS/500 ML BAG IV SCH (11:15)
[2019-03-09] MEDS: Nitroglycerin 0.3 MG/HR PATCH* (7.5 MG) TRANSDERM SCH (11:51)
--- NOTE | 2019-03-09 14:18 | PN ---
Subjective Date of Service: 03/09/19 Interval History: Patient today states she is very bothered by epigastric pain which she describes as a pressure, came on after a BM and is better with breathing. Patient denies associated symptoms of diaphoresis, SOB, or radiation to arms/ neck. Patient denies other pain, F/C, dysuria, diarrhea, or other pain. After discussing multiple times with the patient the Pros/Cons of cardiac catheterization, she agreed to undergo cardiac catheterization. Family History: Unchanged from Admission Social History: Unchanged from Admission Past Medical History: Unchanged from Admission Objective Active Medications: Al Hydrox/Mg Hydrox/Simethicone (Maalox Plus*) 30 ml PO Q6H PRN PRN Reason: INDIGESTION Amlodipine Besylate (Norvasc Tab*) 5 mg PO BID [facility] Last Admin: 03/09/19 09:32 Dose: 5 mg Ascorbic Acid (Vitamin C Tab*) 500 mg PO QAM [facility] Last Admin: 03/09/19 09:32 Dose: 500 mg Aspirin (Aspirin Ec Tab*) 81 mg PO DAILY [facility] Last Admin: 03/09/19 09:32 Dose: 81 mg Clopidogrel Bisulfate (Plavix Tab*) 75 mg PO DAILY [facility] Last Admin: 03/09/19 09:32 Dose: 75 mg Heparin Sodium/Dextrose (Heparin Drip 25,000 Units(*)) 25,000 units in 500 mls @ 0 mls/hr IV PER RATE [facility]; Protocol Losartan Potassium (Cozaar Tab*) 25 mg PO DAILY [facility] Last Admin: 03/09/19 09:32 Dose: 25 mg Metoprolol Succinate (Toprol Xl Tab*) 25 mg PO BID [facility] Last Admin: 03/09/19 09:32 Dose: 25 mg Morphine Sulfate (Morphine Inj (Syringe))*) 2 mg IV Q4H PRN PRN Reason: PAIN - MILD Nitroglycerin (Nitroglycerin Tab 0.4 Mg*) 0.4 mg SL Q5M PRN PRN Reason: ANGINA Nitroglycerin (Nitroglycerin 7.5 Mg Patch*) 1 patch TRANSDERM DAILY@0900 [facility] Last Admin: 03/09/19 11:51 Dose: 1 patch Pharmacy Profile Note (Nitro Patch/Oint Remove*) 1 note PATCH OFF 2100 [facility] Vital Signs - 8 hr 03/09/19 03/09/19 03/09/19 07:25 08:00 11:27 Temperature 97.9 F 98.3 F Pulse Rate 59 63 Respiratory 16 16 16 Rate Blood Pressure 155/63 139/76 (mmHg) O2 Sat by Pulse 96 97 Oximetry Oxygen Devices in Use Now: None Appearance: Patient is a 69yo female who appears stated age and is sitting in the bed in [facility]. Eyes: No Scleral Icterus, PERRLA Ears/Nose/Mouth/Throat: NL Teeth, Lips, Gums, Clear Oropharnyx, Mucous Membranes Moist Neck: NL Appearance and Movements; NL JVP, Trachea Midline Respiratory: Symmetrical Chest Expansion and Respiratory Effort, Clear to Auscultation Cardiovascular: NL Sounds; No Murmurs; No JVD, RRR, No Edema Abdominal: NL Sounds; No Tenderness; No Distention, No Hepatosplenomegaly Lymphatic: No Cervical Adenopathy Extremities: No Edema, No Clubbing, Cyanosis Skin: No Rash or Ulcers, No Nodules or Sclerosis Neurological: Alert and Oriented x 3, NL Sensation, NL Muscle Strength and Tone , - - CN II-XII intact. Result Diagrams: 03/07/19 05:48 03/08/19 06:03 Assess/Plan/Problems-Billing Assessment: 69 yo white female with PMHx CAD, remote DVT, HLD, nephrolithiasis presents with chest pain and found to have NSTEMI. Patient refuses cardiac catheterization and remains inpatient for medical management. - Patient Problems (1) NSTEMI (non-ST elevated myocardial infarction) Current Visit: Yes Status: Acute Code(s): I21.4 - NON-ST ELEVATION (NSTEMI) MYOCARDIAL INFARCTION SNOMED Code(s): 94688256 Comment: - Patient had prior hx of [place] - Arrived with chest pain radiating to shoulders, found to have NSTEMI; refused cardiac catheterization; opted for medical management and heparin drip initiated - Persistent fluctuating troponin elevation and intermittent CP - CP responded to Nitro, Patch initiated with good effect. - Echo with new LV dysfunction, EF to 40-45% - Troponin peaked at 0.49 - Cardiology consulted and recommend changing atenolol to metoprolol due to mortality benefit in HFrEF - Continuing ARB, statin, amlodipine, Plavix, ASA, and Nitro Patch - Patient elected to have catheterization at this time due to slow course, order placed. (2) Systolic heart failure Current Visit: Yes Status: Acute Code(s): I50.20 - UNSPECIFIED SYSTOLIC ( CONGESTIVE) HEART FAILURE SNOMED Code(s): 024077573 Comment: - Secondary to new [place] or slowly developed from previous MIs - Management as above - Echo with EF 40-45% - No signs of acute exacerbation (3) Delusional ideas Current Visit: Yes Status: Acute Code(s): F22 - DELUSIONAL DISORDERS SNOMED Code(s): 7310677 Comment: - Reported delusional ideas on admission, not mentioned today. - Psychiatry was consulted for capacity determination and Dr. Murrieta feels patient has capacity to make decisions for herself - There is possibility of home abuse vs infidelity; social work is involved (4) DVT prophylaxis Current Visit: Yes Status: Acute Code(s): Z29.9 - ENCOUNTER FOR PROPHYLACTIC MEASURES, UNSPECIFIED SNOMED Code(s): 427291414 Comment: - On heparin drip for NSTEMI - Remote History DVT (5) Full code status Current Visit: Yes Status: Acute Code(s): Z78.9 - OTHER SPECIFIED HEALTH STATUS SNOMED Code(s): 082152166 Status and Disposition: Inpatient for management of NSTEMI, plan for Cath in AM.
[2019-03-09] MEDS: Nitro Patch/OINT Remove PATCH OFF SCH (21:13)
[2019-03-10 07:51] LABS: ABS Basophils 0.1 10^3/ul (0-0.2); ABS Eosinophils 0.3 10^3/ul (0-0.6); ABS Lymphocytes 2.6 10^3/ul (1.0-4.8); ABS Monocytes 0.6 10^3/ul (0-0.8); ABS Neutrophils 5.6 10^3/ul (1.5-7.7); Eosinophil % 2.9 %; Hematocrit 39 % (35-47); Hemoglobin 13.1 g/dL (12.0-16.0); Lymphocyte % 28.8 %; Mean Corpuscular HGB Conc 34 g/dL (31-36); Mean Corpuscular Hemoglobin 30 pg (27-31); Mean Corpuscular Volume 89 fL (80-97); Mean Platelet Volume 8.1 fL (7.4-10.4); Platelet Count 243 10^3/uL (150-450); Red Blood Count 4.38 10^6 /uL (3.70-4.87); Red Cell Distribution Width 13 % (10.5-15); White Blood Count 9.1 10^3/uL (3.5-10.8)
[2019-03-10 08:10] LABS: BUN/Creatinine Ratio 16.2 (8-20); Calcium 9.2 mg/dL (8.6-10.3); EGFR African American 62.5 (>60); EGFR Non-African American 51.7 (>60); Magnesium 2.2 mg/dL (1.9-2.7); Potassium 3.8 mmol/L (3.5-5.0)
[2019-03-10] MEDS ORDERED: diPHENhydraMINE PO* 25 MG PO PRN (10:19)
[2019-03-10] MEDS ORDERED: Diazepam TAB(*) 5 MG PO PRN (10:19)
[2019-03-10] MEDS: Metoprolol Succinate XL TAB* 25 MG PO SCH ×2 (10:30→21:30)
[2019-03-10] MEDS ORDERED: NS 0.9% 1000 ML** 1,000 ML IV SCH ×2 (10:30→16:45)
[2019-03-10] MEDS: amLODIPine TAB* 5 MG PO SCH ×2 (10:30→21:31)
[2019-03-10] MEDS: Aspirin EC TAB* 81 MG TAB.EC PO SCH (10:30)
[2019-03-10] MEDS: Clopidogrel TAB* 75 MG PO SCH (10:30)
[2019-03-10] MEDS: Ascorbic Acid TAB* 500 MG PO SCH (10:30)
[2019-03-10] MEDS: Losartan TAB* 25 MG PO SCH (10:30)
[2019-03-10] MEDS: Nitroglycerin 0.3 MG/HR PATCH* (7.5 MG) TRANSDERM SCH (10:32)
[2019-03-10] MEDS ORDERED: Heparin 2 UNITS/ML IVPREMIX* 3,000 UNIT/1,500 ML BAG IV ONE (14:43)
[2019-03-10] MEDS ORDERED: Lidocaine 1% INJ* 10 MG/ML 30 ML SDV ONE (14:43)
[2019-03-10] MEDS ORDERED: Iodixanol 320 (CONTRAST) 100 ML SDV ONE ×2 (14:43→16:17)
[2019-03-10] MEDS ORDERED: Heparin VIAL(*) 5000 UNITS/ML VIAL (FIVE THOUSAND) IV PRN (14:50)
[2019-03-10] MEDS ORDERED: fentaNYL* 50 MCG/ML 2 ML VIAL (100 MCG VIAL) ONE (15:13)
[2019-03-10] MEDS ORDERED: Midazolam* 1 MG/ML 5 ML VIAL (5 MG) ONE (15:13)
[2019-03-10] MEDS ORDERED: nitroGLYCERIN DRIP* 25,000 MCG/250 ML BTL ONE ×2 (15:14→16:20)
[2019-03-10] MEDS ORDERED: VERAPAMIL 2.5 MG/ML 2 ML VIAL ** 5 mg/2 ml ONE (15:14)
[2019-03-10] MEDS ORDERED: Clopidogrel TAB* 75 MG ONE (15:55)
[2019-03-10] MEDS ORDERED: Bivalirudin(*) 250 MG VIAL ONE (15:57)
[2019-03-10] MEDS ORDERED: Nitroglycerin TAB 0.4 MG* 0.4 MG TAB SL PRN (16:37)
[2019-03-10] MEDS ORDERED: nitroGLYCERIN DRIP* 25,000 MCG/250 ML BTL IV SCH (17:00)
--- NOTE | 2019-03-10 17:17 | PN ---
Subjective Date of Service: 03/10/19 Interval History: Patient this AM was feeling well. Denied any pain, was anxious for procedure and hungry. Patient denies F/C, N/V, abdominal pain, diarrhea, SOB, dysuria. Patient in the afternoon, after the cath developed significant chest pain in the center of her chest without radiation and rated at 6/10. Patient denied other complaints at this time. Family History: Unchanged from Admission Social History: Unchanged from Admission Past Medical History: Unchanged from Admission Objective Active Medications: Al Hydrox/Mg Hydrox/Simethicone (Maalox Plus*) 30 ml PO Q6H PRN PRN Reason: INDIGESTION Amlodipine Besylate (Norvasc Tab*) 5 mg PO BID [facility] Last Admin: 03/10/19 10:30 Dose: 5 mg Ascorbic Acid (Vitamin C Tab*) 500 mg PO QAM [facility] Last Admin: 03/10/19 10:30 Dose: 500 mg Aspirin (Aspirin Ec Tab*) 81 mg PO DAILY [facility] Last Admin: 03/10/19 10:30 Dose: 81 mg Clopidogrel Bisulfate (Plavix Tab*) 75 mg PO DAILY [facility] Last Admin: 03/10/19 10:30 Dose: 75 mg Diphenhydramine HCl (Benadryl Po*) 25 mg PO ONCE PRN PRN Reason: call out operator to Glaucoma Specialist Sodium Chloride (Ns 0.9% 1000 Ml) 1,000 mls @ 100 mls/hr IV PER RATE [facility] Stop: 03/11/19 02:44 Nitroglycerin/Dextrose (Nitroglycerin Drip*) 25,000 mcg in 250 mls @ 6 mls/hr IV .PER PARAMETERS [facility]; Protocol Losartan Potassium (Cozaar Tab*) 25 mg PO DAILY [facility] Last Admin: 03/10/19 10:30 Dose: 25 mg Metoprolol Succinate (Toprol Xl Tab*) 25 mg PO BID [facility] Last Admin: 03/10/19 10:30 Dose: 25 mg Morphine Sulfate (Morphine Inj (Syringe))*) 2 mg IV Q4H PRN PRN Reason: PAIN - MILD Nitroglycerin (Nitroglycerin 7.5 Mg Patch*) 1 patch TRANSDERM DAILY@0900 [facility] Last Admin: 03/10/19 10:32 Dose: 1 patch Nitroglycerin (Nitroglycerin Tab 0.4 Mg*) 0.4 mg SL Q5M PRN PRN Reason: ANGINA Pharmacy Profile Note (Nitro Patch/Oint Remove*) 1 note PATCH OFF [facility] [facility] Last Admin: 03/09/19 21:13 Dose: 1 patch Vital Signs - 8 hr 03/10/19 03/10/19 03/10/19 09:52 13:34 14:33 Temperature 98.1 F 97.7 F Pulse Rate 59 61 Respiratory 13 16 18 Rate Blood Pressure 153/53 165/69 (mmHg) O2 Sat by Pulse 97 95 Oximetry 03/10/19 03/10/19 03/10/19 16:52 16:56 17:00 Temperature Pulse Rate 53 53 Respiratory 22 17 8 Rate Blood Pressure 141/72 149/69 (mmHg) O2 Sat by Pulse 94 97 Oximetry Oxygen Devices in Use Now: None Appearance: Pateint is a 69yo female who appears stated age and is sitting in the bed in NAD. Eyes: No Scleral Icterus, PERRLA Ears/Nose/Mouth/Throat: NL Teeth, Lips, Gums, Clear Oropharnyx, Mucous Membranes Moist Neck: NL Appearance and Movements; NL JVP, Trachea Midline Respiratory: Symmetrical Chest Expansion and Respiratory Effort, Clear to Auscultation Cardiovascular: NL Sounds; No Murmurs; No JVD, RRR, No Edema Abdominal: NL Sounds; No Tenderness; No Distention, No Hepatosplenomegaly Lymphatic: No Cervical Adenopathy Extremities: No Edema, No Clubbing, Cyanosis Skin: No Rash or Ulcers, No Nodules or Sclerosis Neurological: Alert and Oriented x 3, NL Sensation, NL Muscle Strength and Tone , - - CN II-XII intact. Result Diagrams: 03/10/19 07:44 03/10/19 07:44 Assess/Plan/Problems-Billing Assessment: 69 yo white female with PMHx CAD, remote DVT, HLD, nephrolithiasis presents with chest pain and found to have NSTEMI. Patient refuses cardiac catheterization and remains inpatient for medical management. - Patient Problems (1) NSTEMI (non-ST elevated myocardial infarction) Current Visit: Yes Status: Acute Code(s): I21.4 - NON-ST ELEVATION (NSTEMI) MYOCARDIAL INFARCTION SNOMED Code(s): 96897949 Comment: - Patient had prior hx of [place] - Arrived with chest pain radiating to shoulders, found to have NSTEMI; refused cardiac catheterization; opted for medical management and heparin drip initiated - Persistent fluctuating troponin elevation and intermittent CP - CP responded to Nitro, Patch initiated with good effect. - Echo with new LV dysfunction, EF to 40-45% - Troponin peaked at 0.49 - Cardiology consulted and recommend changing atenolol to metoprolol due to mortality benefit in HFrEF - Continuing ARB, statin, amlodipine, Plavix, ASA, and Nitro Patch - Patient elected to have catheterization at this time due to slow course. - Cath showed 99% stenosis in circumflex, ROMINA placed - Put in ICU for Nitro drip due to anginal pain after cath, will taper down as pain decreases. (2) Systolic heart failure Current Visit: Yes Status: Acute Code(s): I50.20 - UNSPECIFIED SYSTOLIC ( CONGESTIVE) HEART FAILURE SNOMED Code(s): 021329084 Comment: - Secondary to new [place] or slowly developed from previous MIs - Management as above - Echo with EF 40-45% - No signs of acute exacerbation (3) Delusional ideas Current Visit: Yes Status: Acute Code(s): F22 - DELUSIONAL DISORDERS SNOMED Code(s): 9154538 Comment: - Reported delusional ideas on admission, not mentioned today. - Psychiatry was consulted for capacity determination and Dr. Murrieta feels patient has capacity to make decisions for herself - There is possibility of home abuse vs infidelity; social work is involved - No mention of magical thinking in days. (4) DVT prophylaxis Current Visit: Yes Status: Acute Code(s): Z29.9 - ENCOUNTER FOR PROPHYLACTIC MEASURES, UNSPECIFIED SNOMED Code(s): 405992089 Comment: - SCDs and HSQ - Remote History DVT (5) Full code status Current Visit: Yes Status: Acute Code(s): Z78.9 - OTHER SPECIFIED HEALTH STATUS SNOMED Code(s): 883206393 Status and Disposition: Inpatient for management of NSTEMI, Disposition dictated by clinical course.
[2019-03-10] MEDS ORDERED: Acetaminophen TAB* 325 MG PO PRN ×2 (17:23→19:00)
[2019-03-10] MEDS: Nitro Patch/OINT Remove PATCH OFF SCH (21:30)
[2019-03-10] MEDS: Heparin VIAL(*) 5000 UNITS/ML VIAL (FIVE THOUSAND) SUBCUT SCH (21:30)
--- NOTE | 2019-03-11 00:56 | CATH ---
CARDIAC CATHETERIZATION NOTE: DATE OF PROCEDURE: 03/10/19 - ROOM #ICU-02 PROCEDURE: Cardiac catheterization including coronary angiography. INDICATION: Acute coronary syndrome, coronary artery disease. The patient is a 69-year-old female with a history of known coronary artery disease, history of an occluded LAD with [id number] collaterals on a cardiac catheterization in 2004. The patient was admitted to the hospital with unstable angina symptoms with elevated troponin. Cardiac catheterization was recommended. DESCRIPTION OF PROCEDURE: The patient was brought to the cardiac catheterization lab in a fasting state. Informed consent had been obtained prior to the procedure. All labs were reviewed. The patient was placed supine on the catheterization table. The right radial area was prepped and draped in the usual fashion. 1% lidocaine was used for local anesthesia. The radial artery was entered by a Seldinger technique and a guidewire was placed. Over the guidewire, a 6-Macanese sheath introducer was placed. The patient underwent coronary angiography using a 5-Macanese AR1 catheter. At the end of the procedure , the patient went on to stenting to her left circumflex artery. Please see Dr. Perez's notes for those details. The patient had a total of 60 cc of Omnipaque dye and a total of 6 minutes of fluoro time. FINDINGS: 1. Left main artery. The left main was normal in size. It bifurcated into the LAD and circumflex. There was no evidence of stenosis. 2. Left anterior descending artery. The LAD was normal in size. It was occluded at its mid vessel. It had 2 diagonal vessels that were without disease. The distal LAD was filled by collaterals from the RV marginal branch. 3. Left circumflex artery. The left circumflex artery was normal in size. It gave off 1 large branching obtuse marginal. The proximal LAD had mild calcification. The obtuse marginal branch at the distal portion had an eccentric 95% stenosis. 4. Right coronary artery. The right coronary artery was a large dominant vessel. It gave off the PDA. The proximal portion of the right coronary artery had an eccentric 30% stenosis in the proximal portion and an eccentric 50% stenosis in the mid portion. The distal right coronary artery was without disease. The posterolateral branch was without disease. The posterior descending artery of the right coronary artery had proximal sequential 50% to 60 % lesions. It was a tortuous artery. The RV marginal branch of the right coronary artery was a large artery, it had collateral flow to the proximal LAD artery. IMPRESSION: 1. Critical stenosis of 95% to the obtuse marginal branch of the left circumflex artery. 2. Occluded left anterior descending artery with extensive collaterals from the right coronary artery. 3. Sequential 50% to 60% lesions in the proximal PDA of the right coronary artery. 4. Crte-qe-[id number] disease of the proximal and mid right coronary artery. RECOMMENDATIONS: The patient has expressed in the past that she would not want to pursue coronary artery bypass surgery. It is my recommendation that the patient undergo stenting to her left circumflex artery. The patient will have a stress test as an outpatient to determine if the posterior descending artery has a more significant stenosis. [id number]/[facility] #: [id number] SUKI
[2019-03-11 05:28] LABS: ABS Eosinophils 0.2 10^3/ul (0-0.6); ABS Lymphocytes 2.4 10^3/ul (1.0-4.8); ABS Monocytes 0.7 10^3/ul (0-0.8); ABS Neutrophils 5.3 10^3/ul (1.5-7.7); Eosinophil % 2.7 %; Hematocrit 35 % (35-47); Hemoglobin 11.8 g/dL (12.0-16.0); Lymphocyte % 27.7 %; Mean Corpuscular HGB Conc 34 g/dL (31-36); Mean Corpuscular Hemoglobin 30 pg (27-31); Mean Corpuscular Volume 89 fL (80-97); Mean Platelet Volume 8.5 fL (7.4-10.4); Nucleated Red Blood Cells % 0.1; Platelet Count 210 10^3/uL (150-450); Red Blood Count 3.96 10^6 /uL (3.70-4.87); Red Cell Distribution Width 13 % (10.5-15); White Blood Count 8.7 10^3/uL (3.5-10.8)
[2019-03-11 05:42] LABS: BUN/Creatinine Ratio 17.5 (8-20); Calcium 8.2 mg/dL (8.6-10.3); EGFR African American 85.6 (>60); EGFR Non-African American 70.7 (>60); HDL Cholesterol 38.6 mg/dL; Potassium 3.6 mmol/L (3.5-5.0)
--- NOTE | 2019-03-11 08:06 | CATH ---
CC: Dr. Tony Bennett; Dr. Zoe Dey, [facility] INTERVENTIONAL CATHETERIZATION REPORT: DATE OF PROCEDURE: 03/10/19 INDICATION FOR THE PROCEDURE: Asked by Dr. Tony Bennett to perform intervention into the proximal portion of the third (last) trifurcating obtuse marginal branch. The patient with presentation of acute coronary syndrome with non-ST elevation posteroinferior wall myocardial infarction. PROCEDURE: Primary stenting of the proximal portion of the third obtuse marginal branch utilizing a 2.0 x 12 mm long Jignesh drug-eluting stent post dilated to 1 to 2.2 mm. EQUIPMENTS UTILIZED: 1. Interventional guiding catheter was a 6-Malay VL3.5 curve guide catheter. 2. The interventional wire was a 190 cm length BMW guidewire. 3. The stent utilized was a 2.0 x 12 mm long Resolute Jignesh drug-eluting stent. 4. The closure device utilized was a regular size Vasc Band by [employer]. 5. The post stent deployment balloon catheter was a 2.0 x 8 mm long [place] Emerge balloon. MEDICATIONS GIVEN DURING THE INTERVENTIONAL PROCEDURE: The patient received an additional 150 mg of clopidogrel. The patient also received an Angiomax bolus and Angiomax drip was started for a subtherapeutic ACT, intracoronary nitroglycerin, and IV nitroglycerin, additional Versed was given. DESCRIPTION OF PROCEDURE: The patient was already prepped and draped in sterile fashion by Dr. Tony Bennett, who had performed the diagnostic catheterization via the right radial artery. The existing diagnostic catheter was exchanged for the guiding catheter. An ACT was checked and found to be subtherapeutic and Angiomax bolus and Angiomax drip was given. The BMW wire was advanced down the circumflex to the distal portion of the third obtuse marginal branch. Primary stenting was performed utilizing the 2.0 x 12 mm long Resolute with post deployment dilatations made utilizing the 2.0 x 8 mm long NC Emerge balloon to high pressure to obtain 2.1 to 2.2 mm. Following this, the artery was assessed for result. The catheter and sheaths were removed and hemostasis was obtained with a Vasc Band. The total contrast use for the whole case was 190 mL of Visipaque. The radiation exposure for the whole case include 17.8 minutes of fluoro time. The air kerma radiation was 1255 milligray. The DAP radiation was 7473 microgray per meter square. RESULTS: INTERVENTION INTO PROXIMAL PORTION OF DISTAL THIRD OBTUSE MARGINAL BRANCH: Successful reduction of critical 99% stenosis with primary stenting utilizing a 2.0 x 12 mm Resolute [place] drug eluting stent, post dilated to 2.1- 2.2 mm, with residual stenosis of 0% KASSANDRA 3 flow. No dissection seen. OVERALL ASSESSMENT: The patient should be maintained on dual antiplatelet therapy ideally for 1 year's time. Ongoing aggressive risk factor management should be pursued most importantly including medication for hyperlipidemia. The patient in the past has not tolerated statins. A consideration for the injectable antihyperlipidemic agents should be made. This will be addressed by Dr. Tony Bennett, the primary interventional radiology technologist. [id number]/[facility] #: [id number] SUKI
[2019-03-11] MEDS: Aspirin EC TAB* 81 MG TAB.EC PO SCH (08:09)
[2019-03-11] MEDS: Heparin VIAL(*) 5000 UNITS/ML VIAL (FIVE THOUSAND) SUBCUT SCH (08:10)
[2019-03-11] MEDS: Losartan TAB* 25 MG PO SCH (08:10)
[2019-03-11] MEDS: amLODIPine TAB* 5 MG PO SCH (08:10)
[2019-03-11] MEDS: Ascorbic Acid TAB* 500 MG PO SCH (08:10)
[2019-03-11] MEDS: Metoprolol Succinate XL TAB* 25 MG PO SCH (08:10)
[2019-03-11] MEDS: Clopidogrel TAB* 75 MG PO SCH (08:11)
[2019-03-11 11:28] VITALS: BP 156/68
--- NOTE | 2019-03-13 02:06 | DS ---
CC: Dr. Dey * DISCHARGE SUMMARY: DATE OF ADMISSION: 03/06/19 DATE OF DISCHARGE: 03/11/19 PRIMARY CARE PROVIDER: Dr. Dey. MY ATTENDING WHILE IN THE HOSPITAL: Dr. Ej Davila.* (DICTATED BY JEANNIE NGO) PRIMARY DISCHARGE DIAGNOSES: 1. N-STEMI, status post stenting of circumflex artery. 2. Heart failure, reduced ejection fraction, EF 40% to 45%. SECONDARY DISCHARGE DIAGNOSES: 1. Hypertension. 2. Hyperlipidemia. 3. Remote history of DVT. 4. Nephrolithiasis. 5. Multiple . STUDIES DONE WHILE IN THE HOSPITAL: EKG from 03/06/[address] depressions in the anterior and lateral leads, rate of 67, QTc of 470. Biphasic T- waves in V3, V4. Compared to previous exam, the patient's hospitalization and numerous other EKGs, ST segment changes persisted though with some improvement. Chest x-ray from 03/06/19 read as, no active cardiopulmonary disease. Transthoracic echocardiogram from 03/06/19 read as, left ventricular cavity size mildly reduced, wall thickness mildly increase, there is mild focal basal hypertrophy. Estimated ejection fraction is 40% to 45%. Systolic function is reported as improved in a study of 2004 with 50% to 55% ejection fraction with wall motion abnormalities. Grade 1 diastolic dysfunction. Cardiac catheterization from 03/10/19 read as stenosis of 95% in the obtuse marginal branch of the left circumflex artery. Occluded left anterior descending with extensive collaterals in the right coronary artery, central sequential 55% to 60% lesion of the proximal PDA and right coronary artery, mild disease in proximal and mid right coronary artery. MEDICATIONS AT DISCHARGE : 1. Telmisartan 80 mg p.o. daily. 2. Ranitidine 150 mg p.o. b.i.d. 3. Aspirin 81 mg p.o. b.i.d. 4. CoQ10 100 mg p.o. q.a.m. 5. Vitamin C 500 units p.o. q.a.m. 6. Nitroglycerin 0.4 mg sublingual q.5 minutes for chest pain. 7. Multivitamin 1 tab p.o. daily. 8. Clopidogrel 75 mg p.o. daily. 9. Metoprolol succinate 25 mg p.o. b.i.d. 10. Amlodipine 5 mg p.o. nightly. New medications on discharge: 1. Clopidogrel. 2. Metoprolol. Medications discontinued at discharge: 1. Atenolol 50 mg p.o. nightly. HOSPITAL COURSE: This is a brief summary of the patient's presentation. For more details, please see the history and physical from Johana Sheets DO on . In brief, the patient is a 69-year-old female with past medical history significant for the above, who presents to the emergency department with pain in her chest/upper abdomen that radiates into her chest, shoulders, and her arms with some associated shortness of breath which resolved with nitroglycerin. The patient came to the emergency department and was found to have an elevated troponin. No other significant illness or laboratory abnormalities. The patient was started on a heparin drip and beta-blockers. The patient's ARB was continued. The patient was started on oral nitro. The patient was seen in consultation by Lida Whitaker of Cardiology who recommended a cardiac catheterization. The patient refused at that time given that she felt she was going to have a bad outcome from it. 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 The patient at that time was seen in consultation by Dr. Marlo Murrieta of Psychiatry who deemed the patient confident to make decisions. The patient was managed with maximal medical therapy for the next 2 days when the patient began to have recurrent pain in her abdomen that responded to nitroglycerin tablet and nitroglycerin patch. At this time, the risks and benefits of a cardiac catheterization were discussed with the patient again and given the concern for ongoing chest pain, troponins that had not decreased significantly from a peak of 0.49, the patient elected to go forward with cardiac catheterization which was performed on 03/10/19. The patient at that time was found to have a 90% lesion of the circumflex artery. This was stented. The patient had significant chest pain with this but no dissection was noted. The patient was started on nitroglycerin drip which resolved the patient's chest pain. The patient on the day of discharge was able to ambulate fully around the unit with no recurrence in chest pain, just chest tightness which was not believed to be cardiac in origin from consulting product specialist and the patient was stable for discharge. PHYSICAL EXAMINATION ON THE DAY OF DISCHARGE: General: The patient is a 69- year- old female who appears stated age, sitting comfortably in bed, in no acute distress. Vital Signs: At the time of discharge, temperature 97.9, pulse rate 63, respiratory rate 19, oxygen saturation 97% on room air, and blood pressure 156/68. HEENT: Head normocephalic, atraumatic. Sclerae anicteric. No conjunctival injection. Nasal mucosa moist. Oral mucosa moist. No pharyngeal erythema, discharge, or exudate. Neck: Supple, nontender. No lymphadenopathy. No carotid bruits auscultated. No JVD. Cardiac: Regular rate and rhythm. No clicks, murmurs, gallops, or rubs. Pulses 2+ in the dorsalis pedis, posterior tibialis, and radial areas. Respiratory: Clear to auscultation bilaterally. No wheezes, rales, or rhonchi. Good air exchange bilaterally. Abdomen: Soft, nontender, and nondistended. Bowel sounds present. Normoactive in all 4 quadrants. No hepatosplenomegaly. No abdominal bruits auscultated. No hepatojugular reflux. Genitourinary: No suprapubic or CVA tenderness. Skin: Clean, dry, intact. No rashes. Right arm radial access site closed without concern. Neuro: Cranial nerves II through XII intact. Alert and oriented x3. Psychiatric: Pleasant and cooperative. DISCHARGE PLAN: The patient will be discharged to home. The patient will have close followup with her primary care provider and her product specialist given the patient's stain intolerance and repeated acute coronary syndrome with significant coronary artery disease. The patient has been recommended to be started on PCSK9 inhibition. This will be set up through her product specialist in the outpatient setting. The patient had a stent placed and will be on Plavix and aspirin that should be continued for a full year unless there is strong indication to do otherwise. The patient has new heart failure with reduced ejection fraction. The patient is on ARB. The patient has been started on metoprolol. The patient cannot tolerate statin. The patient is not fluid overloaded. In the future, if her blood pressure will tolerate, may be started on spironolactone and diuretics as needed. The patient should have a heart healthy diet, caffeine okay. Engage in activity as tolerated. The patient should have nitroglycerin tabs for acute chest pain. The patient should return to the hospital for recurring chest pain, severe shortness of breath, passing out, or other alarming symptoms. The patient does not need any primary prevention LifeVest at this time. TIME SEEN: Approximately 60 minutes spent on the discharge of the patient, 30 of which spent [id number] with the patient obtaining history and physical and discussing treatment plan. JEANNIE NGO [id number]/[facility] #: [id number] SUKI
== END 2019-03-11 12:00 | disposition home or self-care (01) | DRG 247 ==
LOC: ED 08:21 → MEDTELE 10:47 → ICU 11:51 → MEDTELE 11:51 → ICU 03-10 16:37
PROVIDERS: ADMIT Internal Medicine; ATTEND Internal Medicine
PROC: B2111ZZ Fluoroscopy of Multiple Coronary Arteries using Low Osmolar Contrast (ICD-10-PCS; 2019-03-10)
PROC: 027034Z Dilation of Coronary Artery, One Artery with Drug-eluting Intraluminal Device, Percutaneous Approach (ICD-10-PCS; principal; 2019-03-10 14:00)
DX: I21.4 Non-ST elevation (NSTEMI) myocardial infarction (principal); I16.1 Hypertensive emergency; I50.20 Unspecified systolic (congestive) heart failure; I25.110 Atherosclerotic heart disease of native coronary artery with unstable angina pectoris; M19.90 Unspecified osteoarthritis, unspecified site; K21.9 Gastro-esophageal reflux disease without esophagitis; E78.5 Hyperlipidemia, unspecified; F32.9 Major depressive disorder, single episode, unspecified; I16.0 Hypertensive urgency; E87.6 Hypokalemia; I11.0 Hypertensive heart disease with heart failure; F22 Delusional disorders; Z88.0 Allergy status to penicillin; Z88.8 Allergy status to other drugs, medicaments and biological substances; Z85.828 Personal history of other malignant neoplasm of skin; Z91.041 Radiographic dye allergy status; Z91.012 Allergy to eggs; Z82.49 Family history of ischemic heart disease and other diseases of the circulatory system; Z83.3 Family history of diabetes mellitus; I25.2 Old myocardial infarction; Z72.89 Other problems related to lifestyle; Z86.718 Personal history of other venous thrombosis and embolism; Z79.82 Long term (current) use of aspirin; Z79.02 Long term (current) use of antithrombotics/antiplatelets; Z87.442 Personal history of urinary calculi
CPT/HCPCS: 36415; 71045; 80048; 80053; 80061; 81003; 82550; 82553; 82607; 82746; 83605; 83690; 83735; 83880; 84443; 84484; 85025; 85347; 85610; 85730; 87641; 93005; 93306; 93458; 99156; 99157; 99284; A9270-GY; C1725; C1769; C1874; C1887; C9600-LC; J0583; J1644; J2250; J2270; J3010; J3480

== ENCOUNTER 2019-03-19 11:13 | Emergency (ER) | payer MEDICARE ==
--- NOTE | 2019-03-19 12:03 | ED ---
Back Pain - HPI Summary HPI Summary: Patient is a 69-year-old female presenting to the ED with tailbone pain. She states she fell this morning downstairs and hit her lower back and tailbone. She states after placing ice on her lower back, this pain dissipated. She is no longer complaining of pain to her mid or lower back. She denies hitting her head or LOC. She remains ambulatory. She is only endorsing pain to the tailbone and symptoms are worse with sitting and better with standing. Symptoms are aggravated with flexing at the hips and better with standing up straight. She denies any other symptoms this time. Patient does mention she had a stent placement last week and is currently on Plavix. She was concerned with "internal bleeding." She does deny any CP, SOB , abdominal pain, nausea, vomiting. She appears well. - History of Current Complaint Chief Complaint: EDFall Stated Complaint: SLID AND FELL PER PT Time Seen by Provider: 03/19/19 11:26 Hx Obtained From: Patient Onset/Duration: Sudden Onset Timing: Constant Back Pain Location: Is Discrete @ - tailbone pain Severity Initially: Moderate Severity Currently: Moderate Pain Intensity: 3 Pain Scale Used: 0-10 Numeric Character: Sharp Aggravating Symptom(s): Movement Alleviating Symptom(s): Rest Associated Signs And Symptoms: Positive: Negative - Risk Factors AAA Risk Factors: Negative TAD Risk Factors: Negative Cauda Equina Risk Factors: Negative Epidural Abscess Risk Factors: Negative - Allergies/Home Medications Allergies/Adverse Reactions: Allergies Allergy/AdvReac Type Severity Reaction Status Date / Time chlorhexidine Allergy Rash Verified 03/19/19 11:25 egg Allergy Hives Verified 03/19/19 11:25 Iodine and Iodide Containing Allergy Rash Verified 03/19/19 11:25 Produc Penicillins Allergy Hives Verified 03/19/19 11:25 [id number]-Bkg Reductase Allergy Rash Verified 03/19/19 11:25 Inhibitor telmisartan Allergy Hives Verified 03/19/19 11:25 PMH/Surg Hx/FS Hx/Imm Hx Previously Healthy: Yes Endocrine/Hematology History: Reports: Hx Diabetes - PREDIABETIC-PATIENT WOULD PREFER TO AVOID IV GLUCOSE IF POSSIBLE Cardiovascular History: Reports: Hx Angina, Hx Coronary Artery Disease, Hx Hypercholesterolemia, Hx Hypertension - ON MEDICATION FOR, Hx Myocardial Infarction - 2003 Denies: Hx Pacemaker/ICD, Hx Valvular Heart Disease Respiratory History: Denies: Hx Asthma, Hx Chronic Obstructive Pulmonary Disease (COPD) History: Denies: Hx Renal Disease Musculoskeletal History: Reports: Hx Arthritis Sensory History: Reports: Hx Contacts or Glasses Denies: Hx Hearing Aid Opthamlomology History: Reports: Hx Contacts or Glasses Psychiatric History: Denies: Hx Panic Disorder - Cancer History Cancer Type, Location and Year: skin CA - Surgical History Surgery Procedure, Year, and Place: ANGIOGRAM. ORAL SURGERY. right UNDERARM CYST REMOVED-07/2017-dr. mitchell. [facility] DISCECTOMY/LAMINECTOMY Hx Anesthesia Reactions: No - Immunization History Hx Pertussis Vaccination: No Immunizations Up to Date: Yes Infectious Disease History: No Infectious Disease History: Denies: Traveled Outside the [place] in Last 30 Days - Family History Known Family History: Positive: Cardiac Disease, Diabetes - Social History Occupation: Unemployed Lives: With Family Alcohol Use: Weekly Alcohol Amount: 1 drink Hx Substance Use: No Substance Use Type: Reports: None Hx Tobacco Use: No Smoking Status (MU): Never Smoked Tobacco Review of Systems Constitutional: Negative Negative: Fever, Chills, Fatigue, Skin Diaphoresis Negative: Palpitations, Chest Pain Negative: Shortness Of Breath, Cough Genitourinary: Negative Positive: no symptoms reported, see HPI Positive: Arthralgia - tailbone pain without pain to the lower back Skin: Negative Neurological: Negative All Other Systems Reviewed And Are Negative: Yes Physical Exam Triage Information Reviewed: Yes Vital Signs On Initial Exam: Initial Vitals Temp Pulse Resp BP Pulse Ox 98.3 F 62 14 143/73 99 03/19/19 11:22 03/19/19 11:22 03/19/19 11:22 03/19/19 11:22 03/19/19 11:22 Vital Signs Reviewed: Yes Appearance: Positive: Well-Appearing, Well-Nourished Skin: Positive: Warm, Skin Color Reflects Adequate Perfusion Head/Face: Positive: Normal Head/Face Inspection Eyes: Positive: EOMI, Conjunctiva Clear Neck: Positive: Supple, No Lymphadenopathy Respiratory/Lung Sounds: Positive: Clear to Auscultation, Breath Sounds Present Cardiovascular: Positive: RRR, Pulses are Symmetrical in both Upper and Lower Extremities Musculoskeletal: Positive: Pain @ - tailbone pain Neurological: Positive: Speech Normal Psychiatric: Positive: Affect/Mood Appropriate AVPU Assessment: Alert Diagnostics - Vital Signs Vital Signs Temp Pulse Resp BP Pulse Ox 03/19/19 11:22 98.3 F 62 14 143/73 99 - Laboratory Lab Statement: Any lab studies that have been ordered have been reviewed, and results considered in the medical decision making process. Back Pain Course/Dx - Course Course Of Treatment: On physical examination, patient endorses pain with flexion at the hips. No signs of trauma to the low back or to the coccyx. Xray obtained which shows a: questionable fractured tip of the coccyx. This was discussed with the patient. Patient is declining a follow-up CT scan at this time. She states she has an appointment with her PCP this afternoon and approximately one hour. She prefers to see her PCP. She is discharged with coccyx injury. - Diagnoses Differential Diagnosis/HQI/PQRI: Positive: Strain, Sprain, Other - coccyx fracture Provider Diagnoses: Injury of coccyx Discharge - Sign-Out/Discharge Documenting (check all that apply): Patient Departure Patient Received Moderate/Deep Sedation with Procedure: No - Discharge Plan Condition: Stable Disposition: HOME Patient Education Materials: Coccyx Injury (ED) Referrals: Zoe Dey MD [Primary Care Provider] - Additional Instructions: Please follow up with your PCP As discussed, there is a questionable non-displaced fracture You have declined a CT to further evaluate this Please see your PCP and return to the ED for any worsening symptoms Obtain a coccyx donut seat cushion for relief Tylenol 650mg three times daily for discomfort Ice to the area may help - Billing Disposition and Condition Condition: STABLE Disposition: Home
[2019-03-19 13:35] VITALS: BP 140/70
== END 2019-03-19 13:34 | disposition home or self-care (01) ==
LOC: ED 11:13
DX: S39.92XA Unspecified injury of lower back, initial encounter (principal); W10.9XXA Fall (on) (from) unspecified stairs and steps, initial encounter; Y92.9 Unspecified place or not applicable; Z79.01 Long term (current) use of anticoagulants; Z95.5 Presence of coronary angioplasty implant and graft; R73.03 Prediabetes; I10 Essential (primary) hypertension; Z88.0 Allergy status to penicillin; Z88.8 Allergy status to other drugs, medicaments and biological substances; Z91.012 Allergy to eggs
CPT/HCPCS: 72220; 99282

== ENCOUNTER 2020-05-18 08:31 | Observation (INO) ==
[2020-05-18] MEDS ORDERED: diPHENhydraMINE 25 mg TAB PO PRN (11:47)
[2020-05-18] MEDS ORDERED: NS 0.9% 1000 ml BAG 1,000 ML IV SCH (12:00)
[2020-05-18] MEDS ORDERED: fentaNYL 100 mcg/2 ml 50 MCG/ML VIAL ONE (13:46)
[2020-05-18] MEDS ORDERED: Heparin 1,000 UNIT/ML 10 ml (10,000 UNITS) CATHLAB/DIALYSIS ONE (13:46)
[2020-05-18] MEDS ORDERED: Midazolam 5 mg/5 ml VIAL 1 mg/ml 5 ml VIAL (5 mg) ONE (13:46)
[2020-05-18] MEDS ORDERED: VERAPAMIL 2.5 MG/ML 2 ML VIAL ** 5 mg/2 ml ONE (13:47)
[2020-05-18] MEDS ORDERED: diPHENhydraMINE 25 mg TAB ONE (13:47)
[2020-05-18] MEDS ORDERED: Lidocaine 1% VIAL 10 MG/ML VIAL ONE (13:48)
[2020-05-18] MEDS ORDERED: Heparin 2 UNITS/ML 1000 mls 3,000 ML IV ONE (13:48)
[2020-05-18] MEDS ORDERED: nitroGLYCERIN DRIP 25,000 MCG/250 ML BTL ONE (13:48)
[2020-05-18] MEDS ORDERED: Iohexol 350 (CONTRAST) 200 ML MDV IV ONE (13:48)
[2020-05-18] MEDS ORDERED: Iodixanol 320 (CONTRAST) 100 ML SDV ONE ×3 (14:25→14:57)
[2020-05-18 14:44] LABS: BUN/Creatinine Ratio 19.8 (8-20); Calcium 9.4 mg/dL (8.6-10.3); EGFR African American 84.1 (>60); EGFR Non-African American 69.5 (>60); Potassium 3.5 mmol/L (3.5-5.0)
[2020-05-18] MEDS ORDERED: Bivalirudin 250 MG VIAL ONE (14:58)
[2020-05-18] MEDS ORDERED: Aspirin EC 81 mg TAB.EC (enteric coated) PO SCH (18:00)
[2020-05-19 05:42] LABS: ABS Basophils 0.1 10^3/ul (0-0.2); ABS Eosinophils 0.1 10^3/ul (0-0.6); ABS Lymphocytes 2.6 10^3/ul (1.0-4.8); ABS Monocytes 0.7 10^3/ul (0-0.8); ABS Neutrophils 5.2 10^3/ul (1.5-7.7); Eosinophil % 1.6 %; Hematocrit 35 % (35-47); Hemoglobin 12.1 g/dL (12.0-16.0); Lymphocyte % 29.5 %; Mean Corpuscular HGB Conc 35 g/dL (31-36); Mean Corpuscular Hemoglobin 30 pg (27-31); Mean Corpuscular Volume 87 fL (80-97); Mean Platelet Volume 8.4 fL (7.4-10.4); Nucleated Red Blood Cells % 0.1; Platelet Count 233 10^3/uL (150-450); Red Blood Count 3.99 10^6 /uL (3.70-4.87); Red Cell Distribution Width 13 % (10-15); White Blood Count 8.7 10^3/uL (3.5-10.8)
[2020-05-19 06:28] LABS: Calcium 8.9 mg/dL (8.6-10.3); Potassium 3.9 mmol/L (3.5-5.0)
[2020-05-19 06:34] LABS: EGFR African American 73.5 (>60); EGFR Non-African American 60.8 (>60)
[2020-05-19] MEDS ORDERED: Aspirin EC 81 mg TAB.EC (enteric coated) PO SCH (10:30)
[2020-05-19 16:00] VITALS: BP 160/65
== END 2020-05-19 16:15 | disposition home or self-care (01) ==
LOC: IMG 08:31 → ICU 08:31
PROVIDERS: ADMIT Specialist; ATTEND Specialist